=== PATIENT | female | born 1965 | race American Indian/Alaskan Native ===

== ENCOUNTER 2017-05-30 07:23 | Inpatient (IN) | payer MEDICAID ==
--- NOTE | 2017-05-30 08:14 | XRay Report ---
ROUTINE CHEST, TWO VIEWS: HISTORY: Shortness of breath. The trachea, heart, mediastinal contour, lung bran and bony thorax are unremarkable. IMPRESSION: Unremarkable chest x-ray.
[2017-05-30 08:25] LABS: Hematocrit 42.8 % (30.3-42.9); Mean Corpuscular HGB Conc 33 % (30-34); Mean Corpuscular Hemoglobin 30 pg (28-32); Mean Corpuscular Volume 92 fl (79-97); Platelet Count 160 K/mm3 (140-440); Red Blood Count 4.68 M/mm3 (3.65-5.03); Red Cell Distribution Width 13.7 % (13.2-15.2)
[2017-05-30 08:39] LABS: BUN/Creatinine Ratio 19; Blood Urea Nitrogen 13 mg/dL (7-17); Calcium 9.1 mg/dL (8.4-10.2); Hemolysis Index 10
[2017-05-30 10:23] LABS: Anisocytosis 1+; Macrocytosis 1+; Platelet Estimate Consistent w Auto; Total Cells Counted 100
[2017-05-30] MEDS ORDERED: PROVENTIL IH ONE ×2 (10:36→11:39)
[2017-05-30] MEDS ORDERED: VIBRAMYCIN PO ONE (10:36)
[2017-05-30] MEDS ORDERED: DELTASONE PO ONE (10:36)
[2017-05-30] MEDS ORDERED: ATROVENT IH ONE (10:37)
--- NOTE | 2017-05-30 10:41 | Emergency Department Report ---
HPI - General Chief Complaint: Abdominal Pain Time Seen by Provider: 05/30/17 10:35 - HPI HPI: 82-year-old female has a history of COPD and tobacco abuse . She states that she's been coughing and wheezing. Stated that she had vomiting. She's vomited with streaks of blood. She also noticed bright red blood per rectum. She denies abdominal pain at this time. Mostly she is concerned about her breathing with cough. Recently admitted 1 month ago at [facility]. ED Past Medical Hx - Past Medical History Previous Medical History?: Yes Hx CVA: Yes Hx Heart Attack/AMI: Yes Hx Congestive Heart Failure: Yes Hx Diabetes: Yes Hx Seizures: Yes Hx Asthma: Yes Hx COPD: Yes Additional medical history: BRONCHITIS - Surgical History Past Surgical History?: No - Social History Smoking Status: Former Smoker Substance Use Type: None ED Review of Systems ROS: Stated complaint: SOB Other details as noted in HPI Comment: All other systems reviewed and negative Constitutional: chills, malaise ENT: denies: throat pain Respiratory: cough Physical Exam - Physical Exam Vital Signs: Vital Signs 05/30/17 07:37 Temperature 98.3 F Pulse Rate 72 Respiratory 24 Rate Blood Pressure 128/64 O2 Sat by Pulse 97 Oximetry Physical Exam: General: Well-appearing, no acute distress HEENT: Normocephalic atraumatic pupils equal round and reactive to light anicteric sclera Nose: no rhinorrhea Oropharynx: Clear mucous membranes no lesions Neck: supple, no meningismus Chest: Speaking full word sentences mild respiratory distress with inspiratory expiratory wheezes no rales no rhonchi Cardiac: Regular rate and rhythm no murmurs no rubs no gallops Abdomen: Soft nontender nondistended positive bowel sounds no guarding Extremities: No cyanosis no clubbing no edema Neuro: Moves all extremities 4, no gross deficits Psychiatric: Alert and oriented 4 normal aspect normal judgment normal insight ED Course Vital Signs 05/30/17 07:37 Temperature 98.3 F Pulse Rate 72 Respiratory 24 Rate Blood Pressure 128/64 O2 Sat by Pulse 97 Oximetry ED Medical Decision Making - Lab Data Result diagrams: 05/30/17 08:07 05/30/17 08:07 Vital Signs - 24 hr 05/30/17 07:37 Temperature 98.3 F Pulse Rate 72 Respiratory 24 Rate Blood Pressure 128/64 O2 Sat by Pulse 97 Oximetry Laboratory Results - last 24 hr 05/30/17 05/30/17 08:07 08:07 WBC 4.6 RBC 4.68 Hgb 14.0 Hct 42.8 MCV 92 MCH 30 MCHC 33 RDW 13.7 Plt Count 160 [place] % (Auto) Enforcement Safety Officer Add Manual Diff Complete Total Counted 100 Seg Neuts % (Manual) 59.0 Band Neutrophils % 0 Lymphocytes % (Manual) 20.0 Reactive Lymphs % (Man) 0 Monocytes % (Manual) 17.0 H Eosinophils % (Manual) 3.0 Basophils % (Manual) 1.0 Metamyelocytes % 0 Myelocytes % 0 Promyelocytes % 0 Blast Cells % 0 Nucleated RBC % Not Reportable Seg Neutrophils # Man 2.7 Band Neutrophils # 0.0 Lymphocytes # (Manual) 0.9 L Abs React Lymphs (Man) 0.0 Monocytes # (Manual) 0.8 Eosinophils # (Manual) 0.1 Basophils # (Manual) 0.0 Metamyelocytes # 0.0 Myelocytes # 0.0 Promyelocytes # 0.0 Blast Cells # 0.0 WBC Morphology Not Reportable Hypersegmented Neuts Not Reportable Hyposegmented Neuts Not Reportable Hypogranular Neuts Not Reportable Smudge Cells Not Reportable Toxic Granulation Not Reportable Toxic Vacuolation Not Reportable Dohle Bodies Not Reportable Pelger-Huet Anomaly Not Reportable Irish Rods Not Reportable Platelet Estimate Consistent w auto Clumped Platelets Not Reportable Plt Clumps, EDTA Not Reportable Large Platelets Not Reportable Giant Platelets Not Reportable Platelet Satelliting Not Reportable Plt Morphology Comment Not Reportable RBC Morphology Not Reportable Dimorphic RBCs Not Reportable Polychromasia Not Reportable Hypochromasia Not Reportable Poikilocytosis Not Reportable Anisocytosis 1+ Microcytosis Not Reportable Macrocytosis 1+ Spherocytes Not Reportable Pappenheimer Bodies Not Reportable Sickle Cells Not Reportable Target Cells Not Reportable Tear Drop Cells Not Reportable Ovalocytes Not Reportable Helmet Cells Not Reportable [place] Bodies Not Reportable Rufus Rings Not Reportable [place] Cells Not Reportable Bite Cells Not Reportable Crenated Cell Not Reportable Elliptocytes Not Reportable Acanthocytes (Spur) Not Reportable Rouleaux Not Reportable Hemoglobin C Crystals Not Reportable Schistocytes Not Reportable Malaria parasites Not Reportable Anshu Bodies Not Reportable Hem Pathologist Commnt No Sodium 142 Potassium 4.2 Chloride 102.5 Carbon Dioxide 28 Anion Gap 16 BUN 13 Creatinine 0.7 Estimated GFR > 60 BUN/Creatinine Ratio 19 Glucose 103 H Calcium 9.1 Troponin T < 0.010 - EKG Data 05/30/17 10:40 EKG obtained 746 Normal sinus rhythm rate of 80 beats a minute normal axis normal intervals diffuse T-wave inversion. No ST elevation - Radiology Data Radiology results: report reviewed - Medical Decision Making 1. Ms. Elias presents with mild COPD exacerbation and she was given oral antibiotics, nebulizer therapy and prednisone 2. Patient reports vomiting blood and bright red blood per rectum. No indication clinically of active GI bleed. Normal hemoglobin and hematocrit. Normal heart rate With persistent shortness of breath and wheezing after 15 mg of albuterol and Atrovent, patient admitted to hospitalist service. I spoke with Dr. Mckee. Critical care attestation.: If time is entered above; I have spent that time in minutes in the direct care of this critically ill patient, excluding procedure time. ED Disposition Clinical Impression: COPD exacerbation Disposition: OP ADMIT IP TO THIS HOSP Is pt being admited?: Yes Does the pt Need Aspirin: No Condition: Fair Instructions: Abdominal Pain (ED), Chronic Obstructive Pulmonary Disease (ED) Referrals: PRIMARY CARE, [Primary Care Provider] - 3-5 Days
--- NOTE | 2017-05-30 13:06 | History and Physical Report ---
History of Present Illness Chief complaint: I cant breathe, and i keep coughing History of present illness: 52 YO Female with MO, AL, CHF, DM, COPD, Seizure Disorder presents to ED for evaluation. Pt states that she has experienced shortness of breath, productive cough of yellowish blood tinged sputum, and wheezing over the past 3 days with worsening symptoms over the past 1 day. Pt acknowledges subjective fever, but denies NVD, CP, Palpitations, Syncope, Prolonged travel/immobility, individual/ family history of DVT/PE, unilateral leg swelling, calf pain, leg pain, BRBPR, unintentional weight loss, night sweats, bone pain, trauma, or recent ill contacts. Pt seen and evaluated in ED and found to have COPD Exacerbation complicated by respiratory failure, not responsive to nebulizer therapy. Pt admitted to medical floor. Past History Past Medical History: acute AL, COPD, diabetes, heart failure, seizures, other ( Asthma) Past Surgical History: No surgical history, Other (reviewed) Social history: single. denies: smoking, alcohol abuse, prescription drug abuse Family history: diabetes, hypertension Medications and Allergies Allergies Allergy/AdvReac Type Severity Reaction Status Date / Time Penicillins Allergy Hives Verified 05/30/17 07:35 Review of Systems Constitutional: fever, weakness, no weight loss, no weight gain, no chills, no sweats, no night sweats Ears, nose, mouth and throat: no ear pain, no ear discharge, no tinnitis, no decreased hearing, no nose pain, no nasal congestion Breasts: no change in shape, no swelling, no mass Cardiovascular: no chest pain, no palpitations, no lightheadedness Respiratory: cough, cough with sputum, shortness of breath, wheezing Gastrointestinal: no nausea, no vomiting, no diarrhea, no constipation Genitourinary Female: no pelvic pain, no flank pain, no menorrhagia, no dysuria , no urinary frequency, no urgency Rectal: no pain, no incontinence, no bleeding Musculoskeletal: no neck stiffness, no neck pain, no shooting arm pain, no arm numbness/tingling, no low back pain, no shooting leg pain Integumentary: no rash, no pruritis, no redness, no sores, no wounds, no jaundice Neurological: no transient paralysis, no paralysis, no weakness, no parathesias , no numbness Psychiatric: no anxiety, no memory loss, no change in sleep habits, no sleep disturbances, no insomnia Endocrine: no cold intolerance, no heat intolerance, no polyphagia, no excessive thirst, no polydipsia, no polyuria Hematologic/Lymphatic: no easy bruising, no easy bleeding, no lymphadenopathy, no lymphedema Allergic/Immunologic: no urticaria, no allergic rhinitis, no wheezing, no persistent infections, no anaphylaxis, no angioedema Exam - Constitutional Vitals: Temp Pulse Resp BP Pulse Ox 98.3 F 80 22 128/64 97 05/30/17 07:37 05/30/17 12:55 05/30/17 12:55 05/30/17 07:37 05/30/17 07:37 General appearance: Present: mild distress - EENT Eyes: Present: PERRL ENT: hearing intact, clear oral mucosa - Neck Neck: Present: supple, normal ROM - Respiratory Respiratory effort: normal Respiratory: bilateral: diminished, wheezing - Cardiovascular Heart Sounds: Present: S1 & S2. Absent: rub, click - Extremities Extremities: pulses symmetrical, No edema Peripheral Pulses: within normal limits - Abdominal General gastrointestinal: Present: soft, non-tender, non-distended, normal bowel sounds Female genitourinary: Present: normal - Integumentary Integumentary: Present: clear, warm, dry - Musculoskeletal Musculoskeletal: gait normal, strength equal bilaterally - Psychiatric Psychiatric: appropriate mood/affect, intact judgment & insight - Neurologic Neurologic: CNII-XII intact, moves all extremities Results - Labs CBC & Chem 7: 05/30/17 08:07 05/30/17 08:07 Labs: Abnormal lab results 05/30/17 05/30/17 Range/Units 08:07 08:07 Monocytes % (Manual) 17.0 H (0.0-7.3) % Lymphocytes # (Manual) 0.9 L (1.2-5.4) K/mm3 Glucose 103 H (65-100) mg/dL Assessment and Plan - Patient Problems (1) Acute respiratory failure Current Visit: Yes Status: Acute Qualifiers: Respiratory failure complication: hypoxia Qualified Code(s): J96.01 - Acute respiratory failure with hypoxia Plan to address problem: Supplemental oxygen, nebulizer therapy, NIPPV as clinically indicated, incentive spirometry, pulmonary toilet. (2) CHF (congestive heart failure) Current Visit: Yes Status: Suspected Qualifiers: Congestive heart failure type: systolic Congestive heart failure chronicity : acute Qualified Code(s): I50.21 - Acute systolic (congestive) heart failure Plan to address problem: CXR, BNP, Echo, Fluid restriction, monitor uop q shift, daily weight, diuresis, troponin, afterload reduction, (3) Diabetes Current Visit: Yes Status: Acute Plan to address problem: ADA diet, insulin, accu check (4) Seizure Current Visit: Yes Status: Acute Plan to address problem: Resume home medication, supportive care, (5) COPD exacerbation Current Visit: Yes Status: Acute Plan to address problem: Supplemental oxygen, IV steroids, Chest X ray, (6) DVT prophylaxis Current Visit: Yes Status: Acute
[2017-05-30] MEDS ORDERED: DULCOLAX PR PRN (13:08)
[2017-05-30] MEDS ORDERED: MILK OF MAGNESIA PO PRN (13:08)
[2017-05-30] MEDS ORDERED: ZOFRAN IV PRN (13:08)
[2017-05-30] MEDS ORDERED: MAGNESIUM SULFATE 1 GM in NACL 0.9% 50 ML IV ONE (15:00)
[2017-05-30] MEDS: ZITHROMAX 500 MG in NACL 0.9% 250ML 250 ML IV SCH (17:00)
[2017-05-31] MEDS: PROVENTIL IH PRN (08:10)
[2017-05-31] MEDS ORDERED: NON-FORMULARY (Levetiracetam [Keppra Tab] 1,000 MG) PO SCH (12:00)
--- NOTE | 2017-05-31 12:01 | Progress Note ---
Assessment and Plan Assessment and plan: Patient is a 52-year-old woman with history of chronic hypoxic respiratory failure on home O2 due to COPD, seizure disorder, osteoarthritis and type 2 diabetes mellitus with neuropathy who presents with shortness of breath and cough. Patient admits to running out of her oxygen because she has been living in a longterm. pCXR reported as no acute findings -Acute on chronic hypoxic respiratory failure due to COPD exacerbation: Treated with oxygen,, IV steroids -Acute exacerbation of COPD: Add nebulizer treatments [id number], treat with IV antibiotics -Seizure disorder: Restart her home medication -Type 2 diabetes mellitus: Add SSI, ADA diet -Noncompliance: Counseling done -DVT/GI prophylaxis reviewed Full code Disposition: Consult case management for oxygen, she qualifies for oxygen, anticipate discharge in 2-3 days History Interval history: Patient was seen and examined. Follow-up on current diagnosis of shortness of breath and cough which is still present. Overnight uneventful. Patient denies any chest pain, nausea/vomiting or severe headaches. Imaging, nursing note, chart, labs and old chart reviewed. Discussed with patient. Hospitalist Physical - Physical exam Narrative exam: GEN: WDWN, NAD, AWAKE, ALERT, ORIENTATED 3 HEENT: NCAT, EOMI, PERRL, OP Clear NECK: supple, no adenopathy, no thyromegaly, no JVD CVS/HEART: RRR, NORMAL S1S2, NO JVD, pulses present bilaterally CHEST/LUNGS: Bilateral rhonchi, diminished breath sounds, Symmetrical chest expansion, reduced air entry bilaterally GI/Abdomen: soft, NTND, good bowel sounds, no guarding or rebound /Bladder: no suprapubic tenderness, no CVA or paraspinal tenderness EXT/Skin: no c/c/e, no obvious rash MSK: FROM x 4 Neuro: CN 2-12 grossly intact, no new focal deficits Psych: Anxious - Constitutional Vitals: Temp Pulse Resp BP Pulse Ox 99.3 F 81 18 145/87 93 05/31/17 07:29 05/31/17 07:29 05/31/17 07:29 05/31/17 07:29 05/31/17 07:29 Results - Labs CBC & Chem 7: 05/30/17 08:07 05/30/17 08:07 Labs: Laboratory Last Values WBC 4.6 K/mm3 (4.5-11.0) 05/30/17 08:07 RBC 4.68 M/mm3 (3.65-5.03) 05/30/17 08:07 Hgb 14.0 gm/dl (10.1-14.3) 05/30/17 08:07 Hct 42.8 % (30.3-42.9) 05/30/17 08:07 MCV 92 fl (79-97) 05/30/17 08:07 MCH 30 pg (28-32) 05/30/17 08:07 MCHC 33 % (30-34) 05/30/17 08:07 RDW 13.7 % (13.2-15.2) 05/30/17 08:07 Plt Count 160 K/mm3 (140-440) 05/30/17 08:07 [place] % (Auto) Furnace Caretaker 05/30/17 08:07 Add Manual Diff Complete 05/30/17 08:07 Total Counted 100 05/30/17 08:07 Seg Neuts % (Manual) 59.0 % (40.0-70.0) 05/30/17 08:07 Band Neutrophils % 0 % 05/30/17 08:07 Lymphocytes % (Manual) 20.0 % (13.4-35.0) 05/30/17 08:07 Reactive Lymphs % (Man) 0 % 05/30/17 08:07 Monocytes % (Manual) 17.0 % (0.0-7.3) H 05/30/17 08:07 Eosinophils % (Manual) 3.0 % (0.0-4.3) 05/30/17 08:07 Basophils % (Manual) 1.0 % (0.0-1.8) 05/30/17 08:07 Metamyelocytes % 0 % 05/30/17 08:07 Myelocytes % 0 % 05/30/17 08:07 Promyelocytes % 0 % 05/30/17 08:07 Blast Cells % 0 % 05/30/17 08:07 Nucleated RBC % Not Reportable 05/30/17 08:07 Seg Neutrophils # Man 2.7 K/mm3 (1.8-7.7) 05/30/17 08:07 Band Neutrophils # 0.0 K/mm3 05/30/17 08:07 Lymphocytes # (Manual) 0.9 K/mm3 (1.2-5.4) L 05/30/17 08:07 Abs React Lymphs (Man) 0.0 K/mm3 05/30/17 08:07 Monocytes # (Manual) 0.8 K/mm3 (0.0-0.8) 05/30/17 08:07 Eosinophils # (Manual) 0.1 K/mm3 (0.0-0.4) 05/30/17 08:07 Basophils # (Manual) 0.0 K/mm3 (0.0-0.1) 05/30/17 08:07 Metamyelocytes # 0.0 K/mm3 05/30/17 08:07 Myelocytes # 0.0 K/mm3 05/30/17 08:07 Promyelocytes # 0.0 K/mm3 05/30/17 08:07 Blast Cells # 0.0 K/mm3 05/30/17 08:07 WBC Morphology Not Reportable 05/30/17 08:07 Hypersegmented Neuts Not Reportable 05/30/17 08:07 Hyposegmented Neuts Not Reportable 05/30/17 08:07 Hypogranular Neuts Not Reportable 05/30/17 08:07 Smudge Cells Not Reportable 05/30/17 08:07 Toxic Granulation Not Reportable 05/30/17 08:07 Toxic Vacuolation Not Reportable 05/30/17 08:07 Dohle Bodies Not Reportable 05/30/17 08:07 Pelger-Huet Anomaly Not Reportable 05/30/17 08:07 Riish Rods Not Reportable 05/30/17 08:07 Platelet Estimate Consistent w auto 05/30/17 08:07 Clumped Platelets Not Reportable 05/30/17 08:07 Plt Clumps, EDTA Not Reportable 05/30/17 08:07 Large Platelets Not Reportable 05/30/17 08:07 Giant Platelets Not Reportable 05/30/17 08:07 Platelet Satelliting Not Reportable 05/30/17 08:07 Plt Morphology Comment Not Reportable 05/30/17 08:07 RBC Morphology Not Reportable 05/30/17 08:07 Dimorphic RBCs Not Reportable 05/30/17 08:07 Polychromasia Not Reportable 05/30/17 08:07 Hypochromasia Not Reportable 05/30/17 08:07 Poikilocytosis Not Reportable 05/30/17 08:07 Anisocytosis 1+ 05/30/17 08:07 Microcytosis Not Reportable 05/30/17 08:07 Macrocytosis 1+ 05/30/17 08:07 Spherocytes Not Reportable 05/30/17 08:07 Pappenheimer Bodies Not Reportable 05/30/17 08:07 Sickle Cells Not Reportable 05/30/17 08:07 Target Cells Not Reportable 05/30/17 08:07 Tear Drop Cells Not Reportable 05/30/17 08:07 Ovalocytes Not Reportable 05/30/17 08:07 Helmet Cells Not Reportable 05/30/17 08:07 Soto-[place] Bodies Not Reportable 05/30/17 08:07 [place] Rings Not Reportable 05/30/17 08:07 Tulio Cells Not Reportable 05/30/17 08:07 Bite Cells Not Reportable 05/30/17 08:07 Crenated Cell Not Reportable 05/30/17 08:07 Elliptocytes Not Reportable 05/30/17 08:07 Acanthocytes (Spur) Not Reportable 05/30/17 08:07 Rouleaux Not Reportable 05/30/17 08:07 Hemoglobin C Crystals Not Reportable 05/30/17 08:07 Schistocytes Not Reportable 05/30/17 08:07 Malaria parasites Not Reportable 05/30/17 08:07 Anshu Bodies Not Reportable 05/30/17 08:07 Hem Pathologist Commnt No 05/30/17 08:07 D-Dimer 193.66 ng/mlDDU (0-234) 05/30/17 13:19 Sodium 142 mmol/L (137-145) 05/30/17 08:07 Potassium 4.2 mmol/L (3.6-5.0) 05/30/17 08:07 Chloride 102.5 mmol/L (98-107) 05/30/17 08:07 Carbon Dioxide 28 mmol/L (22-30) 05/30/17 08:07 Anion Gap 16 mmol/L 05/30/17 08:07 BUN 13 mg/dL (7-17) 05/30/17 08:07 Creatinine 0.7 mg/dL (0.7-1.2) 05/30/17 08:07 Estimated GFR > 60 ml/min 05/30/17 08:07 BUN/Creatinine Ratio 19 % 05/30/17 08:07 Glucose 103 mg/dL (65-100) H 05/30/17 08:07 POC Glucose 186 (70-105) H 05/30/17 16:00 Calcium 9.1 mg/dL (8.4-10.2) 05/30/17 08:07 Troponin T < 0.010 ng/mL (0.00-0.029) 05/30/17 08:07 NT-Pro-B Natriuret Pep 44.91 pg/mL (0-900) 05/30/17 08:07
[2017-05-31] MEDS ORDERED: D50W (25GM) Syringe IV PRN (12:03)
[2017-05-31] MEDS: ZESTRIL PO SCH (13:01)
[2017-05-31] MEDS: KEPPRA PO SCH ×2 (13:12→21:21)
[2017-05-31] MEDS: DUONEB *Not for PRN Use IH SCH ×2 (15:08→19:49)
[2017-05-31] MEDS: MUCINEX ER PO SCH ×2 (16:20→21:21)
[2017-05-31] MEDS: ZITHROMAX 500 MG in NACL 0.9% 250ML 250 ML IV SCH (16:20)
[2017-05-31] MEDS: NOVOLOG SUB-Q SCH ×2 (16:31→23:01)
[2017-05-31] MEDS: GLUCOPHAGE PO SCH (21:21)
[2017-05-31] MEDS: PAMELOR PO SCH (21:21)
[2017-05-31] MEDS: TYLENOL PO PRN (21:25)
[2017-06-01] MEDS: PROVENTIL IH PRN (04:28)
[2017-06-01 06:24] LABS: Hematocrit 42.3 % (30.3-42.9); Mean Corpuscular HGB Conc 33 % (30-34); Mean Corpuscular Hemoglobin 30 pg (28-32); Mean Corpuscular Volume 91 fl (79-97); Platelet Count 156 K/mm3 (140-440); Red Blood Count 4.65 M/mm3 (3.65-5.03); Red Cell Distribution Width 14.2 % (13.2-15.2)
[2017-06-01 06:44] LABS: BUN/Creatinine Ratio 15; Blood Urea Nitrogen 9 mg/dL (7-17); Calcium 9.1 mg/dL (8.4-10.2); Hemolysis Index 31
[2017-06-01] MEDS: DUONEB *Not for PRN Use IH SCH ×3 (07:59→19:36)
[2017-06-01] MEDS: NOVOLOG SUB-Q SCH ×4 (08:12→22:16)
[2017-06-01] MEDS: KEPPRA PO SCH ×2 (09:33→22:13)
[2017-06-01] MEDS: MUCINEX ER PO SCH ×2 (09:33→22:12)
[2017-06-01] MEDS: GLUCOPHAGE PO SCH ×2 (09:33→22:13)
[2017-06-01] MEDS: ZITHROMAX PO SCH (09:33)
[2017-06-01] MEDS: ZESTRIL PO SCH (09:34)
[2017-06-01] MEDS: TYLENOL PO PRN (09:42)
--- NOTE | 2017-06-01 12:58 | Progress Note ---
Assessment and Plan Assessment and plan: Patient is a 52-year-old woman with history of chronic hypoxic respiratory failure on home O2 due to COPD, seizure disorder, osteoarthritis and type 2 diabetes mellitus with neuropathy who presents with shortness of breath and cough. Patient admits to running out of her oxygen because she has been living in a halfway. pCXR reported as no acute findings -Acute on chronic hypoxic respiratory failure due to COPD exacerbation: Treated with oxygen,, IV steroids -Acute exacerbation of COPD: Add nebulizer treatments [id number], treat with IV antibiotics -Seizure disorder: Restart her home medication -Type 2 diabetes mellitus: Add SSI, ADA diet -Noncompliance: Counseling done -DVT/GI prophylaxis reviewed Full code Disposition: Consult case management for oxygen, if she qualifies for oxygen, anticipate discharge in 2-3 days History Interval history: Patient was seen and examined. Follow-up on current diagnosis of shortness of breath and cough which is still present. Overnight uneventful. Patient denies any chest pain, nausea/vomiting or severe headaches. Imaging, nursing note, chart, labs and old chart reviewed. Discussed with patient. Hospitalist Physical - Physical exam Narrative exam: GEN: WDWN, NAD, AWAKE, ALERT, ORIENTATED 3 HEENT: NCAT, EOMI, PERRL, OP Clear NECK: supple, no adenopathy, no thyromegaly, no JVD CVS/HEART: RRR, NORMAL S1S2, NO JVD, pulses present bilaterally CHEST/LUNGS: Bilateral rhonchi, diminished breath sounds, Symmetrical chest expansion, reduced air entry bilaterally GI/Abdomen: soft, NTND, good bowel sounds, no guarding or rebound /Bladder: no suprapubic tenderness, no CVA or paraspinal tenderness EXT/Skin: no c/c/e, no obvious rash MSK: FROM x 4 Neuro: CN 2-12 grossly intact, no new focal deficits Psych: Anxious - Constitutional Vitals: Temp Pulse Resp BP Pulse Ox 98.8 F 102 H 18 120/87 95 06/01/17 07:18 06/01/17 08:10 06/01/17 08:10 06/01/17 09:34 06/01/17 10:00 General appearance: Absent: mild distress Results - Labs CBC & Chem 7: 06/01/17 05:20 06/01/17 05:20 Labs: Laboratory Last Values WBC 5.1 K/mm3 (4.5-11.0) 06/01/17 05:20 RBC 4.65 M/mm3 (3.65-5.03) 06/01/17 05:20 Hgb 14.0 gm/dl (10.1-14.3) 06/01/17 05:20 Hct 42.3 % (30.3-42.9) 06/01/17 05:20 MCV 91 fl (79-97) 06/01/17 05:20 MCH 30 pg (28-32) 06/01/17 05:20 MCHC 33 % (30-34) 06/01/17 05:20 RDW 14.2 % (13.2-15.2) 06/01/17 05:20 Plt Count 156 K/mm3 (140-440) 06/01/17 05:20 [place] % (Auto) Silk Printer 05/30/17 08:07 Add Manual Diff Complete 05/30/17 08:07 Total Counted 100 05/30/17 08:07 Seg Neuts % (Manual) 59.0 % (40.0-70.0) 05/30/17 08:07 Band Neutrophils % 0 % 05/30/17 08:07 Lymphocytes % (Manual) 20.0 % (13.4-35.0) 05/30/17 08:07 Reactive Lymphs % (Man) 0 % 05/30/17 08:07 Monocytes % (Manual) 17.0 % (0.0-7.3) H 05/30/17 08:07 Eosinophils % (Manual) 3.0 % (0.0-4.3) 05/30/17 08:07 Basophils % (Manual) 1.0 % (0.0-1.8) 05/30/17 08:07 Metamyelocytes % 0 % 05/30/17 08:07 Myelocytes % 0 % 05/30/17 08:07 Promyelocytes % 0 % 05/30/17 08:07 Blast Cells % 0 % 05/30/17 08:07 Nucleated RBC % Not Reportable 05/30/17 08:07 Seg Neutrophils # Man 2.7 K/mm3 (1.8-7.7) 05/30/17 08:07 Band Neutrophils # 0.0 K/mm3 05/30/17 08:07 Lymphocytes # (Manual) 0.9 K/mm3 (1.2-5.4) L 05/30/17 08:07 Abs React Lymphs (Man) 0.0 K/mm3 05/30/17 08:07 Monocytes # (Manual) 0.8 K/mm3 (0.0-0.8) 05/30/17 08:07 Eosinophils # (Manual) 0.1 K/mm3 (0.0-0.4) 05/30/17 08:07 Basophils # (Manual) 0.0 K/mm3 (0.0-0.1) 05/30/17 08:07 Metamyelocytes # 0.0 K/mm3 05/30/17 08:07 Myelocytes # 0.0 K/mm3 05/30/17 08:07 Promyelocytes # 0.0 K/mm3 05/30/17 08:07 Blast Cells # 0.0 K/mm3 05/30/17 08:07 WBC Morphology Not Reportable 05/30/17 08:07 Hypersegmented Neuts Not Reportable 05/30/17 08:07 Hyposegmented Neuts Not Reportable 05/30/17 08:07 Hypogranular Neuts Not Reportable 05/30/17 08:07 Smudge Cells Not Reportable 05/30/17 08:07 Toxic Granulation Not Reportable 05/30/17 08:07 Toxic Vacuolation Not Reportable 05/30/17 08:07 Dohle Bodies Not Reportable 05/30/17 08:07 Pelger-Huet Anomaly Not Reportable 05/30/17 08:07 Irish Rods Not Reportable 05/30/17 08:07 Platelet Estimate Consistent w auto 05/30/17 08:07 Clumped Platelets Not Reportable 05/30/17 08:07 Plt Clumps, EDTA Not Reportable 05/30/17 08:07 Large Platelets Not Reportable 05/30/17 08:07 Giant Platelets Not Reportable 05/30/17 08:07 Platelet Satelliting Not Reportable 05/30/17 08:07 Plt Morphology Comment Not Reportable 05/30/17 08:07 RBC Morphology Not Reportable 05/30/17 08:07 Dimorphic RBCs Not Reportable 05/30/17 08:07 Polychromasia Not Reportable 05/30/17 08:07 Hypochromasia Not Reportable 05/30/17 08:07 Poikilocytosis Not Reportable 05/30/17 08:07 Anisocytosis 1+ 05/30/17 08:07 Microcytosis Not Reportable 05/30/17 08:07 Macrocytosis 1+ 05/30/17 08:07 Spherocytes Not Reportable 05/30/17 08:07 Pappenheimer Bodies Not Reportable 05/30/17 08:07 Sickle Cells Not Reportable 05/30/17 08:07 Target Cells Not Reportable 05/30/17 08:07 Tear Drop Cells Not Reportable 05/30/17 08:07 Ovalocytes Not Reportable 05/30/17 08:07 Helmet Cells Not Reportable 05/30/17 08:07 Soto-[place] Bodies Not Reportable 05/30/17 08:07 [place] Rings Not Reportable 05/30/17 08:07 Tulio Cells Not Reportable 05/30/17 08:07 Bite Cells Not Reportable 05/30/17 08:07 Crenated Cell Not Reportable 05/30/17 08:07 Elliptocytes Not Reportable 05/30/17 08:07 Acanthocytes (Spur) Not Reportable 05/30/17 08:07 Rouleaux Not Reportable 05/30/17 08:07 Hemoglobin C Crystals Not Reportable 05/30/17 08:07 Schistocytes Not Reportable 05/30/17 08:07 Malaria parasites Not Reportable 05/30/17 08:07 Anshu Bodies Not Reportable 05/30/17 08:07 Hem Pathologist Commnt No 05/30/17 08:07 D-Dimer 193.66 ng/mlDDU (0-234) 05/30/17 13:19 Sodium 138 mmol/L (137-145) 06/01/17 05:20 Potassium 4.0 mmol/L (3.6-5.0) 06/01/17 05:20 Chloride 97.9 mmol/L (98-107) L 06/01/17 05:20 Carbon Dioxide 28 mmol/L (22-30) 06/01/17 05:20 Anion Gap 16 mmol/L 06/01/17 05:20 BUN 9 mg/dL (7-17) 06/01/17 05:20 Creatinine 0.6 mg/dL (0.7-1.2) L 06/01/17 05:20 Estimated GFR > 60 ml/min 06/01/17 05:20 BUN/Creatinine Ratio 15 % 06/01/17 05:20 Glucose 97 mg/dL (65-100) 06/01/17 05:20 POC Glucose 93 (70-105) 06/01/17 11:20 Calcium 9.1 mg/dL (8.4-10.2) 06/01/17 05:20 Magnesium 1.90 mg/dL (1.7-2.3) 06/01/17 05:20 Troponin T < 0.010 ng/mL (0.00-0.029) 05/30/17 08:07 NT-Pro-B Natriuret Pep 44.91 pg/mL (0-900) 05/30/17 08:07
[2017-06-01] MEDS ORDERED: GUAIFENESIN DM SYRUP PO PRN (14:14)
[2017-06-01] MEDS: TESSALON PERLES PO SCH ×2 (16:09→22:13)
[2017-06-01] MEDS: PERCOCET 5/325 PO PRN (17:00)
[2017-06-01] MEDS: PAMELOR PO SCH (22:13)
[2017-06-02] MEDS: TESSALON PERLES PO SCH ×3 (05:31→21:55)
[2017-06-02] MEDS: TYLENOL PO PRN (05:33)
[2017-06-02 06:10] LABS: Hematocrit 44.3 % (30.3-42.9); Hemoglobin 14.4 gm/dl (10.1-14.3); Mean Corpuscular HGB Conc 33 % (30-34); Mean Corpuscular Hemoglobin 30 pg (28-32); Mean Corpuscular Volume 91 fl (79-97); Platelet Count 174 K/mm3 (140-440); Red Blood Count 4.86 M/mm3 (3.65-5.03); Red Cell Distribution Width 14.1 % (13.2-15.2)
[2017-06-02 06:16] LABS: BUN/Creatinine Ratio 17; Blood Urea Nitrogen 10 mg/dL (7-17); Calcium 9.4 mg/dL (8.4-10.2); Hemolysis Index 12
[2017-06-02] MEDS: DUONEB *Not for PRN Use IH SCH ×3 (07:12→19:44)
[2017-06-02] MEDS: NOVOLOG SUB-Q SCH ×4 (07:20→23:51)
[2017-06-02] MEDS: KEPPRA PO SCH ×2 (09:18→21:56)
[2017-06-02] MEDS: GLUCOPHAGE PO SCH ×2 (09:19→21:56)
[2017-06-02] MEDS: ZITHROMAX PO SCH (09:20)
[2017-06-02] MEDS: MUCINEX ER PO SCH ×2 (09:20→21:55)
[2017-06-02] MEDS: ZESTRIL PO SCH (09:29)
--- NOTE | 2017-06-02 11:18 | Progress Note ---
Assessment and Plan Assessment and plan: Patient is a 52-year-old woman with history of chronic hypoxic respiratory failure on home O2 due to COPD, seizure disorder, osteoarthritis and type 2 diabetes mellitus with neuropathy who presents with shortness of breath and cough. Patient admits to running out of her oxygen because she has been living in a snf. pCXR reported as no acute findings -Acute on chronic hypoxic respiratory failure due to COPD exacerbation: Treated with oxygen,, IV steroids -Acute exacerbation of COPD: Add nebulizer treatments [id number], treat with IV antibiotics -Seizure disorder: Restart her home medication -Type 2 diabetes mellitus: Add SSI, ADA diet -Noncompliance: Counseling done -DVT/GI prophylaxis reviewed Full code Disposition: Consult case management for oxygen, if she qualifies for oxygen, anticipate discharge in 1-2 days Patient is on 4liters of O2, once O2 setup then discharge. History Interval history: Patient was seen and examined. Follow-up on current diagnosis of shortness of breath and cough which is still present. Overnight uneventful. Patient denies any chest pain, nausea/vomiting or severe headaches. Imaging, nursing note, chart, labs and old chart reviewed. Discussed with patient. Hospitalist Physical - Physical exam Narrative exam: GEN: WDWN, NAD, AWAKE, ALERT, ORIENTATED 3 HEENT: NCAT, EOMI, PERRL, OP Clear NECK: supple, no adenopathy, no thyromegaly, no JVD CVS/HEART: RRR, NORMAL S1S2, NO JVD, pulses present bilaterally CHEST/LUNGS: Bilateral rhonchi, diminished breath sounds, Symmetrical chest expansion, reduced air entry bilaterally GI/Abdomen: soft, NTND, good bowel sounds, no guarding or rebound /Bladder: no suprapubic tenderness, no CVA or paraspinal tenderness EXT/Skin: no c/c/e, no obvious rash MSK: FROM x 4 Neuro: CN 2-12 grossly intact, no new focal deficits Psych: Anxious - Constitutional Vitals: Temp Pulse Resp BP Pulse Ox 97.8 F 82 20 141/87 94 06/02/17 07:24 06/02/17 07:24 06/02/17 07:24 06/02/17 07:24 06/02/17 07:24 General appearance: Absent: mild distress Results - Labs CBC & Chem 7: 06/02/17 05:10 06/02/17 05:10 Labs: Laboratory Last Values WBC 4.8 K/mm3 (4.5-11.0) 06/02/17 05:10 RBC 4.86 M/mm3 (3.65-5.03) 06/02/17 05:10 Hgb 14.4 gm/dl (10.1-14.3) H 06/02/17 05:10 Hct 44.3 % (30.3-42.9) H 06/02/17 05:10 MCV 91 fl (79-97) 06/02/17 05:10 MCH 30 pg (28-32) 06/02/17 05:10 MCHC 33 % (30-34) 06/02/17 05:10 RDW 14.1 % (13.2-15.2) 06/02/17 05:10 Plt Count 174 K/mm3 (140-440) 06/02/17 05:10 [place] % (Auto) Can Tender 05/30/17 08:07 Add Manual Diff Complete 05/30/17 08:07 Total Counted 100 05/30/17 08:07 Seg Neuts % (Manual) 59.0 % (40.0-70.0) 05/30/17 08:07 Band Neutrophils % 0 % 05/30/17 08:07 Lymphocytes % (Manual) 20.0 % (13.4-35.0) 05/30/17 08:07 Reactive Lymphs % (Man) 0 % 05/30/17 08:07 Monocytes % (Manual) 17.0 % (0.0-7.3) H 05/30/17 08:07 Eosinophils % (Manual) 3.0 % (0.0-4.3) 05/30/17 08:07 Basophils % (Manual) 1.0 % (0.0-1.8) 05/30/17 08:07 Metamyelocytes % 0 % 05/30/17 08:07 Myelocytes % 0 % 05/30/17 08:07 Promyelocytes % 0 % 05/30/17 08:07 Blast Cells % 0 % 05/30/17 08:07 Nucleated RBC % Not Reportable 05/30/17 08:07 Seg Neutrophils # Man 2.7 K/mm3 (1.8-7.7) 05/30/17 08:07 Band Neutrophils # 0.0 K/mm3 05/30/17 08:07 Lymphocytes # (Manual) 0.9 K/mm3 (1.2-5.4) L 05/30/17 08:07 Abs React Lymphs (Man) 0.0 K/mm3 05/30/17 08:07 Monocytes # (Manual) 0.8 K/mm3 (0.0-0.8) 05/30/17 08:07 Eosinophils # (Manual) 0.1 K/mm3 (0.0-0.4) 05/30/17 08:07 Basophils # (Manual) 0.0 K/mm3 (0.0-0.1) 05/30/17 08:07 Metamyelocytes # 0.0 K/mm3 05/30/17 08:07 Myelocytes # 0.0 K/mm3 05/30/17 08:07 Promyelocytes # 0.0 K/mm3 05/30/17 08:07 Blast Cells # 0.0 K/mm3 05/30/17 08:07 WBC Morphology Not Reportable 05/30/17 08:07 Hypersegmented Neuts Not Reportable 05/30/17 08:07 Hyposegmented Neuts Not Reportable 05/30/17 08:07 Hypogranular Neuts Not Reportable 05/30/17 08:07 Smudge Cells Not Reportable 05/30/17 08:07 Toxic Granulation Not Reportable 05/30/17 08:07 Toxic Vacuolation Not Reportable 05/30/17 08:07 Dohle Bodies Not Reportable 05/30/17 08:07 Pelger-Huet Anomaly Not Reportable 05/30/17 08:07 Irish Rods Not Reportable 05/30/17 08:07 Platelet Estimate Consistent w auto 05/30/17 08:07 Clumped Platelets Not Reportable 05/30/17 08:07 Plt Clumps, EDTA Not Reportable 05/30/17 08:07 Large Platelets Not Reportable 05/30/17 08:07 Giant Platelets Not Reportable 05/30/17 08:07 Platelet Satelliting Not Reportable 05/30/17 08:07 Plt Morphology Comment Not Reportable 05/30/17 08:07 RBC Morphology Not Reportable 05/30/17 08:07 Dimorphic RBCs Not Reportable 05/30/17 08:07 Polychromasia Not Reportable 05/30/17 08:07 Hypochromasia Not Reportable 05/30/17 08:07 Poikilocytosis Not Reportable 05/30/17 08:07 Anisocytosis 1+ 05/30/17 08:07 Microcytosis Not Reportable 05/30/17 08:07 Macrocytosis 1+ 05/30/17 08:07 Spherocytes Not Reportable 05/30/17 08:07 Pappenheimer Bodies Not Reportable 05/30/17 08:07 Sickle Cells Not Reportable 05/30/17 08:07 Target Cells Not Reportable 05/30/17 08:07 Tear Drop Cells Not Reportable 05/30/17 08:07 Ovalocytes Not Reportable 05/30/17 08:07 Helmet Cells Not Reportable 05/30/17 08:07 [place] Bodies Not Reportable 05/30/17 08:07 [place] Rings Not Reportable 05/30/17 08:07 [place] Cells Not Reportable 05/30/17 08:07 Bite Cells Not Reportable 05/30/17 08:07 Crenated Cell Not Reportable 05/30/17 08:07 Elliptocytes Not Reportable 05/30/17 08:07 Acanthocytes (Spur) Not Reportable 05/30/17 08:07 Rouleaux Not Reportable 05/30/17 08:07 Hemoglobin C Crystals Not Reportable 05/30/17 08:07 Schistocytes Not Reportable 05/30/17 08:07 Malaria parasites Not Reportable 05/30/17 08:07 Anshu Bodies Not Reportable 05/30/17 08:07 Hem Pathologist Commnt No 05/30/17 08:07 D-Dimer 193.66 ng/mlDDU (0-234) 05/30/17 13:19 Sodium 142 mmol/L (137-145) 06/02/17 05:10 Potassium 4.4 mmol/L (3.6-5.0) 06/02/17 05:10 Chloride 98.2 mmol/L (98-107) 06/02/17 05:10 Carbon Dioxide 30 mmol/L (22-30) 06/02/17 05:10 Anion Gap 18 mmol/L 06/02/17 05:10 BUN 10 mg/dL (7-17) 06/02/17 05:10 Creatinine 0.6 mg/dL (0.7-1.2) L 06/02/17 05:10 Estimated GFR > 60 ml/min 06/02/17 05:10 BUN/Creatinine Ratio 17 % 06/02/17 05:10 Glucose 87 mg/dL (65-100) 06/02/17 05:10 POC Glucose 78 (70-105) 06/02/17 05:37 Calcium 9.4 mg/dL (8.4-10.2) 06/02/17 05:10 Magnesium 1.90 mg/dL (1.7-2.3) 06/01/17 05:20 Troponin T < 0.010 ng/mL (0.00-0.029) 05/30/17 08:07 NT-Pro-B Natriuret Pep 44.91 pg/mL (0-900) 05/30/17 08:07
[2017-06-02] MEDS: PAMELOR PO SCH (21:55)
[2017-06-02] MEDS: PERCOCET 5/325 PO PRN (21:59)
[2017-06-03] MEDS: TESSALON PERLES PO SCH ×3 (05:26→22:28)
[2017-06-03 05:51] LABS: Hematocrit 42.6 % (30.3-42.9); Hemoglobin 14.1 gm/dl (10.1-14.3); Mean Corpuscular HGB Conc 33 % (30-34); Mean Corpuscular Hemoglobin 31 pg (28-32); Mean Corpuscular Volume 92 fl (79-97); Platelet Count 148 K/mm3 (140-440); Red Blood Count 4.63 M/mm3 (3.65-5.03); Red Cell Distribution Width 13.7 % (13.2-15.2)
[2017-06-03 06:04] LABS: BUN/Creatinine Ratio 22; Blood Urea Nitrogen 11 mg/dL (7-17); Calcium 9.1 mg/dL (8.4-10.2); Hemolysis Index 15
[2017-06-03] MEDS: NOVOLOG SUB-Q SCH ×4 (08:09→22:27)
[2017-06-03] MEDS: ROBITUSSIN AC PO PRN (09:35)
[2017-06-03] MEDS: MUCINEX ER PO SCH ×2 (09:36→22:28)
[2017-06-03] MEDS: ZESTRIL PO SCH (09:36)
[2017-06-03] MEDS: ZITHROMAX PO SCH (09:36)
[2017-06-03] MEDS: KEPPRA PO SCH ×2 (09:36→22:28)
[2017-06-03] MEDS: GLUCOPHAGE PO SCH ×2 (09:36→22:27)
[2017-06-03] MEDS: DUONEB *Not for PRN Use IH SCH ×3 (09:45→19:35)
--- NOTE | 2017-06-03 11:21 | Progress Note ---
Assessment and Plan Assessment and plan: Patient is a 52-year-old woman with history of chronic hypoxic respiratory failure on home O2 due to COPD, seizure disorder, osteoarthritis and type 2 diabetes mellitus with neuropathy who presents with shortness of breath and cough. Patient admits to running out of her oxygen because she has been living in a correction. pCXR reported as no acute findings -Acute on chronic hypoxic respiratory failure due to COPD exacerbation: Treated with oxygen,, IV steroids -Acute exacerbation of COPD: Add nebulizer treatments [id number], treat with IV antibiotics -Seizure disorder: Restart her home medication -Type 2 diabetes mellitus: Add SSI, ADA diet -Noncompliance: Counseling done -DVT/GI prophylaxis reviewed Full code Disposition: Consult case management for oxygen, if she qualifies for oxygen, anticipate discharge in 1-2 days on 2 liters of O2, once O2 setup then discharge. History Interval history: Patient was seen and examined. Follow-up on current diagnosis of shortness of breath and cough which is still present. Overnight uneventful. Patient denies any chest pain, nausea/vomiting or severe headaches. Imaging, nursing note, chart, labs and old chart reviewed. Discussed with patient. Hospitalist Physical - Physical exam Narrative exam: GEN: WDWN, NAD, AWAKE, ALERT, ORIENTATED 3 HEENT: NCAT, EOMI, PERRL, OP Clear NECK: supple, no adenopathy, no thyromegaly, no JVD CVS/HEART: RRR, NORMAL S1S2, NO JVD, pulses present bilaterally CHEST/LUNGS: Bilateral rhonchi, diminished breath sounds, Symmetrical chest expansion, reduced air entry bilaterally GI/Abdomen: soft, NTND, good bowel sounds, no guarding or rebound /Bladder: no suprapubic tenderness, no CVA or paraspinal tenderness EXT/Skin: no c/c/e, no obvious rash MSK: FROM x 4 Neuro: CN 2-12 grossly intact, no new focal deficits Psych: Anxious - Constitutional Vitals: Temp Pulse Resp BP Pulse Ox 99.3 F 84 18 132/78 97 06/03/17 07:32 06/03/17 09:48 06/03/17 09:48 06/03/17 07:32 06/03/17 09:48 General appearance: Absent: mild distress Results - Labs CBC & Chem 7: 06/03/17 04:37 06/03/17 04:37 Labs: Laboratory Last Values WBC 4.9 K/mm3 (4.5-11.0) 06/03/17 04:37 RBC 4.63 M/mm3 (3.65-5.03) 06/03/17 04:37 Hgb 14.1 gm/dl (10.1-14.3) 06/03/17 04:37 Hct 42.6 % (30.3-42.9) 06/03/17 04:37 MCV 92 fl (79-97) 06/03/17 04:37 MCH 31 pg (28-32) 06/03/17 04:37 MCHC 33 % (30-34) 06/03/17 04:37 RDW 13.7 % (13.2-15.2) 06/03/17 04:37 Plt Count 148 K/mm3 (140-440) 06/03/17 04:37 [place] % (Auto) Model Technician 05/30/17 08:07 Add Manual Diff Complete 05/30/17 08:07 Total Counted 100 05/30/17 08:07 Seg Neuts % (Manual) 59.0 % (40.0-70.0) 05/30/17 08:07 Band Neutrophils % 0 % 05/30/17 08:07 Lymphocytes % (Manual) 20.0 % (13.4-35.0) 05/30/17 08:07 Reactive Lymphs % (Man) 0 % 05/30/17 08:07 Monocytes % (Manual) 17.0 % (0.0-7.3) H 05/30/17 08:07 Eosinophils % (Manual) 3.0 % (0.0-4.3) 05/30/17 08:07 Basophils % (Manual) 1.0 % (0.0-1.8) 05/30/17 08:07 Metamyelocytes % 0 % 05/30/17 08:07 Myelocytes % 0 % 05/30/17 08:07 Promyelocytes % 0 % 05/30/17 08:07 Blast Cells % 0 % 05/30/17 08:07 Nucleated RBC % Not Reportable 05/30/17 08:07 Seg Neutrophils # Man 2.7 K/mm3 (1.8-7.7) 05/30/17 08:07 Band Neutrophils # 0.0 K/mm3 05/30/17 08:07 Lymphocytes # (Manual) 0.9 K/mm3 (1.2-5.4) L 05/30/17 08:07 Abs React Lymphs (Man) 0.0 K/mm3 05/30/17 08:07 Monocytes # (Manual) 0.8 K/mm3 (0.0-0.8) 05/30/17 08:07 Eosinophils # (Manual) 0.1 K/mm3 (0.0-0.4) 05/30/17 08:07 Basophils # (Manual) 0.0 K/mm3 (0.0-0.1) 05/30/17 08:07 Metamyelocytes # 0.0 K/mm3 05/30/17 08:07 Myelocytes # 0.0 K/mm3 05/30/17 08:07 Promyelocytes # 0.0 K/mm3 05/30/17 08:07 Blast Cells # 0.0 K/mm3 05/30/17 08:07 WBC Morphology Not Reportable 05/30/17 08:07 Hypersegmented Neuts Not Reportable 05/30/17 08:07 Hyposegmented Neuts Not Reportable 05/30/17 08:07 Hypogranular Neuts Not Reportable 05/30/17 08:07 Smudge Cells Not Reportable 05/30/17 08:07 Toxic Granulation Not Reportable 05/30/17 08:07 Toxic Vacuolation Not Reportable 05/30/17 08:07 Dohle Bodies Not Reportable 05/30/17 08:07 Pelger-Huet Anomaly Not Reportable 05/30/17 08:07 Irish Rods Not Reportable 05/30/17 08:07 Platelet Estimate Consistent w auto 05/30/17 08:07 Clumped Platelets Not Reportable 05/30/17 08:07 Plt Clumps, EDTA Not Reportable 05/30/17 08:07 Large Platelets Not Reportable 05/30/17 08:07 Giant Platelets Not Reportable 05/30/17 08:07 Platelet Satelliting Not Reportable 05/30/17 08:07 Plt Morphology Comment Not Reportable 05/30/17 08:07 RBC Morphology Not Reportable 05/30/17 08:07 Dimorphic RBCs Not Reportable 05/30/17 08:07 Polychromasia Not Reportable 05/30/17 08:07 Hypochromasia Not Reportable 05/30/17 08:07 Poikilocytosis Not Reportable 05/30/17 08:07 Anisocytosis 1+ 05/30/17 08:07 Microcytosis Not Reportable 05/30/17 08:07 Macrocytosis 1+ 05/30/17 08:07 Spherocytes Not Reportable 05/30/17 08:07 Pappenheimer Bodies Not Reportable 05/30/17 08:07 Sickle Cells Not Reportable 05/30/17 08:07 Target Cells Not Reportable 05/30/17 08:07 Tear Drop Cells Not Reportable 05/30/17 08:07 Ovalocytes Not Reportable 05/30/17 08:07 Helmet Cells Not Reportable 05/30/17 08:07 [place] Bodies Not Reportable 05/30/17 08:07 [place] Rings Not Reportable 05/30/17 08:07 [place] Cells Not Reportable 05/30/17 08:07 Bite Cells Not Reportable 05/30/17 08:07 Crenated Cell Not Reportable 05/30/17 08:07 Elliptocytes Not Reportable 05/30/17 08:07 Acanthocytes (Spur) Not Reportable 05/30/17 08:07 Rouleaux Not Reportable 05/30/17 08:07 Hemoglobin C Crystals Not Reportable 05/30/17 08:07 Schistocytes Not Reportable 05/30/17 08:07 Malaria parasites Not Reportable 05/30/17 08:07 Anshu Bodies Not Reportable 05/30/17 08:07 Hem Pathologist Commnt No 05/30/17 08:07 D-Dimer 193.66 ng/mlDDU (0-234) 05/30/17 13:19 Sodium 140 mmol/L (137-145) 06/03/17 04:37 Potassium 4.2 mmol/L (3.6-5.0) 06/03/17 04:37 Chloride 95.9 mmol/L (98-107) L 06/03/17 04:37 Carbon Dioxide 32 mmol/L (22-30) H 06/03/17 04:37 Anion Gap 16 mmol/L 06/03/17 04:37 BUN 11 mg/dL (7-17) 06/03/17 04:37 Creatinine 0.5 mg/dL (0.7-1.2) L 06/03/17 04:37 Estimated GFR > 60 ml/min 06/03/17 04:37 BUN/Creatinine Ratio 22 % 06/03/17 04:37 Glucose 77 mg/dL (65-100) 06/03/17 04:37 POC Glucose 72 (70-105) 06/03/17 05:24 Calcium 9.1 mg/dL (8.4-10.2) 06/03/17 04:37 Magnesium 1.90 mg/dL (1.7-2.3) 06/01/17 05:20 Troponin T < 0.010 ng/mL (0.00-0.029) 05/30/17 08:07 NT-Pro-B Natriuret Pep 44.91 pg/mL (0-900) 05/30/17 08:07
[2017-06-03] MEDS: PAMELOR PO SCH (22:29)
[2017-06-04] MEDS: TESSALON PERLES PO SCH ×2 (06:24→13:23)
[2017-06-04] MEDS: DUONEB *Not for PRN Use IH SCH ×2 (07:56→16:11)
[2017-06-04] MEDS ORDERED: D50W (25GM) Vial IV ONE (08:17)
[2017-06-04] MEDS: NOVOLOG SUB-Q SCH ×2 (08:33→11:57)
[2017-06-04] MEDS ORDERED: D50W (25GM) Syringe IV ONE (09:00)
[2017-06-04] MEDS: ZESTRIL PO SCH (10:23)
[2017-06-04] MEDS: MUCINEX ER PO SCH (10:23)
[2017-06-04 10:24] VITALS: BP 156/84
[2017-06-04] MEDS: GLUCOPHAGE PO SCH (10:24)
[2017-06-04] MEDS: KEPPRA PO SCH (10:24)
[2017-06-04] MEDS: ZITHROMAX PO SCH (10:24)
[2017-06-04] MEDS: ROBITUSSIN AC PO PRN (10:36)
--- NOTE | 2017-06-04 13:29 | Progress Note ---
Assessment and Plan Assessment and plan: Patient is a 52-year-old woman with history of chronic hypoxic respiratory failure on home O2 due to COPD, seizure disorder, osteoarthritis and type 2 diabetes mellitus with neuropathy who presents with shortness of breath and cough. Patient admits to running out of her oxygen because she has been living in a care home. pCXR reported as no acute findings -Acute on chronic hypoxic respiratory failure due to COPD exacerbation: Treated with oxygen,, IV steroids -Acute exacerbation of COPD: Add nebulizer treatments [id number], treat with IV antibiotics -Seizure disorder: Restart her home medication -Type 2 diabetes mellitus: Add SSI, ADA diet -Noncompliance: Counseling done -DVT/GI prophylaxis reviewed Full code Disposition: Consult case management for oxygen, if she qualifies for oxygen, anticipate discharge in 1-2 days on 2 liters of O2, once O2 setup then discharge. History Interval history: Patient was seen and examined. Follow-up on current diagnosis of shortness of breath and cough which is still present. Overnight uneventful. Patient denies any chest pain, nausea/vomiting or severe headaches. Imaging, nursing note, chart, labs and old chart reviewed. Discussed with patient. Hospitalist Physical - Physical exam Narrative exam: GEN: WDWN, NAD, AWAKE, ALERT, ORIENTATED 3 HEENT: NCAT, EOMI, PERRL, OP Clear NECK: supple, no adenopathy, no thyromegaly, no JVD CVS/HEART: RRR, NORMAL S1S2, NO JVD, pulses present bilaterally CHEST/LUNGS: Bilateral rhonchi, diminished breath sounds but much improved, Symmetrical chest expansion, good air entry bilaterally GI/Abdomen: soft, NTND, good bowel sounds, no guarding or rebound /Bladder: no suprapubic tenderness, no CVA or paraspinal tenderness EXT/Skin: no c/c/e, no obvious rash MSK: FROM x 4 Neuro: CN 2-12 grossly intact, no new focal deficits Psych: Anxious - Constitutional Vitals: Temp Pulse Resp BP Pulse Ox 99.2 F 84 20 156/84 97 06/04/17 07:49 06/04/17 08:11 06/04/17 08:11 06/04/17 10:23 06/04/17 10:00 General appearance: Absent: mild distress Results - Labs CBC & Chem 7: 06/03/17 04:37 06/03/17 04:37 Labs: Laboratory Last Values WBC 4.9 K/mm3 (4.5-11.0) 06/03/17 04:37 RBC 4.63 M/mm3 (3.65-5.03) 06/03/17 04:37 Hgb 14.1 gm/dl (10.1-14.3) 06/03/17 04:37 Hct 42.6 % (30.3-42.9) 06/03/17 04:37 MCV 92 fl (79-97) 06/03/17 04:37 MCH 31 pg (28-32) 06/03/17 04:37 MCHC 33 % (30-34) 06/03/17 04:37 RDW 13.7 % (13.2-15.2) 06/03/17 04:37 Plt Count 148 K/mm3 (140-440) 06/03/17 04:37 [place] % (Auto) Project Management 05/30/17 08:07 Add Manual Diff Complete 05/30/17 08:07 Total Counted 100 05/30/17 08:07 Seg Neuts % (Manual) 59.0 % (40.0-70.0) 05/30/17 08:07 Band Neutrophils % 0 % 05/30/17 08:07 Lymphocytes % (Manual) 20.0 % (13.4-35.0) 05/30/17 08:07 Reactive Lymphs % (Man) 0 % 05/30/17 08:07 Monocytes % (Manual) 17.0 % (0.0-7.3) H 05/30/17 08:07 Eosinophils % (Manual) 3.0 % (0.0-4.3) 05/30/17 08:07 Basophils % (Manual) 1.0 % (0.0-1.8) 05/30/17 08:07 Metamyelocytes % 0 % 05/30/17 08:07 Myelocytes % 0 % 05/30/17 08:07 Promyelocytes % 0 % 05/30/17 08:07 Blast Cells % 0 % 05/30/17 08:07 Nucleated RBC % Not Reportable 05/30/17 08:07 Seg Neutrophils # Man 2.7 K/mm3 (1.8-7.7) 05/30/17 08:07 Band Neutrophils # 0.0 K/mm3 05/30/17 08:07 Lymphocytes # (Manual) 0.9 K/mm3 (1.2-5.4) L 05/30/17 08:07 Abs React Lymphs (Man) 0.0 K/mm3 05/30/17 08:07 Monocytes # (Manual) 0.8 K/mm3 (0.0-0.8) 05/30/17 08:07 Eosinophils # (Manual) 0.1 K/mm3 (0.0-0.4) 05/30/17 08:07 Basophils # (Manual) 0.0 K/mm3 (0.0-0.1) 05/30/17 08:07 Metamyelocytes # 0.0 K/mm3 05/30/17 08:07 Myelocytes # 0.0 K/mm3 05/30/17 08:07 Promyelocytes # 0.0 K/mm3 05/30/17 08:07 Blast Cells # 0.0 K/mm3 05/30/17 08:07 WBC Morphology Not Reportable 05/30/17 08:07 Hypersegmented Neuts Not Reportable 05/30/17 08:07 Hyposegmented Neuts Not Reportable 05/30/17 08:07 Hypogranular Neuts Not Reportable 05/30/17 08:07 Smudge Cells Not Reportable 05/30/17 08:07 Toxic Granulation Not Reportable 05/30/17 08:07 Toxic Vacuolation Not Reportable 05/30/17 08:07 Dohle Bodies Not Reportable 05/30/17 08:07 Pelger-Huet Anomaly Not Reportable 05/30/17 08:07 [place] Rods Not Reportable 05/30/17 08:07 Platelet Estimate Consistent w auto 05/30/17 08:07 Clumped Platelets Not Reportable 05/30/17 08:07 Plt Clumps, EDTA Not Reportable 05/30/17 08:07 Large Platelets Not Reportable 05/30/17 08:07 Giant Platelets Not Reportable 05/30/17 08:07 Platelet Satelliting Not Reportable 05/30/17 08:07 Plt Morphology Comment Not Reportable 05/30/17 08:07 RBC Morphology Not Reportable 05/30/17 08:07 Dimorphic RBCs Not Reportable 05/30/17 08:07 Polychromasia Not Reportable 05/30/17 08:07 Hypochromasia Not Reportable 05/30/17 08:07 Poikilocytosis Not Reportable 05/30/17 08:07 Anisocytosis 1+ 05/30/17 08:07 Microcytosis Not Reportable 05/30/17 08:07 Macrocytosis 1+ 05/30/17 08:07 Spherocytes Not Reportable 05/30/17 08:07 Pappenheimer Bodies Not Reportable 05/30/17 08:07 Sickle Cells Not Reportable 05/30/17 08:07 Target Cells Not Reportable 05/30/17 08:07 Tear Drop Cells Not Reportable 05/30/17 08:07 Ovalocytes Not Reportable 05/30/17 08:07 Helmet Cells Not Reportable 05/30/17 08:07 [place] Bodies Not Reportable 05/30/17 08:07 [place] Rings Not Reportable 05/30/17 08:07 [place] Cells Not Reportable 05/30/17 08:07 Bite Cells Not Reportable 05/30/17 08:07 Crenated Cell Not Reportable 05/30/17 08:07 Elliptocytes Not Reportable 05/30/17 08:07 Acanthocytes (Spur) Not Reportable 05/30/17 08:07 Rouleaux Not Reportable 05/30/17 08:07 Hemoglobin C Crystals Not Reportable 05/30/17 08:07 Schistocytes Not Reportable 05/30/17 08:07 Malaria parasites Not Reportable 05/30/17 08:07 Anshu Bodies Not Reportable 05/30/17 08:07 Hem Pathologist Commnt No 05/30/17 08:07 D-Dimer 193.66 ng/mlDDU (0-234) 05/30/17 13:19 Sodium 140 mmol/L (137-145) 06/03/17 04:37 Potassium 4.2 mmol/L (3.6-5.0) 06/03/17 04:37 Chloride 95.9 mmol/L (98-107) L 06/03/17 04:37 Carbon Dioxide 32 mmol/L (22-30) H 06/03/17 04:37 Anion Gap 16 mmol/L 06/03/17 04:37 BUN 11 mg/dL (7-17) 06/03/17 04:37 Creatinine 0.5 mg/dL (0.7-1.2) L 06/03/17 04:37 Estimated GFR > 60 ml/min 06/03/17 04:37 BUN/Creatinine Ratio 22 % 06/03/17 04:37 Glucose 77 mg/dL (65-100) 06/03/17 04:37 POC Glucose 80 (70-105) 06/04/17 11:42 Calcium 9.1 mg/dL (8.4-10.2) 06/03/17 04:37 Magnesium 1.90 mg/dL (1.7-2.3) 06/01/17 05:20 Troponin T < 0.010 ng/mL (0.00-0.029) 05/30/17 08:07 NT-Pro-B Natriuret Pep 44.91 pg/mL (0-900) 05/30/17 08:07
--- NOTE | 2017-06-04 13:37 | Discharge Summary ---
Providers - Providers Date of Admission: 05/30/17 13:08 Date of discharge: 06/04/17 Attending physician: DIOGO JUAREZ Primary care physician: CHILI PEPPER GRINDER Hospitalization Condition: Stable Hospital course: Patient is a 52-year-old woman with history of chronic hypoxic respiratory failure on home O2 due to COPD, seizure disorder, osteoarthritis and type 2 diabetes mellitus with neuropathy who presents with shortness of breath and cough. Patient admits to running out of her oxygen because she has been living in a longterm. pCXR reported as no acute findings -Acute on chronic hypoxic respiratory failure due to COPD exacerbation: Treated with oxygen,, IV steroids -Acute exacerbation of COPD: Add nebulizer treatments [id number], treat with IV antibiotics -Seizure disorder: Restart her home medication -Type 2 diabetes mellitus: Add SSI, ADA diet -Noncompliance: Counseling done -DVT/GI prophylaxis reviewed Full code Disposition: Consult case management for oxygen, if she qualifies for oxygen, anticipate discharge in 1-2 days on 2 liters of O2, once O2 setup then discharge. Disposition: TO HOME OR SELFCARE Time spent for discharge: 32 minutes Core Measure Documentation - Palliative Care Palliative Care/ Comfort Measures: Not Applicable - Core Measures Any of the following diagnoses?: none - VTE Discharge Requirements Deep Vein Thrombosis/Pulmonary Embolism Present on Admission: No Has pt received <5 days of overlap therapy or INR<2.0: No Anticoagulant overlap therapy prescribed at discharge: No Contraindication No Overlap Therapy order at DC: Not Indicated Exam - Physical Exam Narrative exam: GEN: WDWN, NAD, AWAKE, ALERT, ORIENTATED 3 HEENT: NCAT, EOMI, PERRL, OP Clear NECK: supple, no adenopathy, no thyromegaly, no JVD CVS/HEART: RRR, NORMAL S1S2, NO JVD, pulses present bilaterally CHEST/LUNGS: Bilateral rhonchi, diminished breath sounds but much improved, Symmetrical chest expansion, good air entry bilaterally GI/Abdomen: soft, NTND, good bowel sounds, no guarding or rebound /Bladder: no suprapubic tenderness, no CVA or paraspinal tenderness EXT/Skin: no c/c/e, no obvious rash MSK: FROM x 4 Neuro: CN 2-12 grossly intact, no new focal deficits Psych: Anxious - Constitutional Vitals: Temp Pulse Resp BP Pulse Ox 99.2 F 84 20 156/84 97 02/07/18 07:49 06/04/17 08:11 06/04/17 08:11 06/04/17 10:23 06/04/17 10:00 Plan Activity: other (no strenous activity until cleared by pcp) Diet: diabetic Durable Medical Equipment Needed Upon Discharge: Oxygen Follow up with: PRIMARY CARE, [Primary Care Provider] - 3-5 Days SONIA RUEDA MD [Staff Physician] - 7 Days Prescriptions: Nortriptyline [Pamelor] 10 mg PO QHS #30 capsule ALBUTEROL Inhaler [ProAir HFA Inhaler] 2 puff IH QID PRN #1 unit PRN Reason: Shortness Of Breath ALBUTEROL NEB's [Proventil 0.083% NEBS] 2.5 mg IH Q4HRT PRN #30 nebu PRN Reason: Shortness Of Breath Azithromycin [Zithromax TAB] 500 mg PO QDAY #2 tablet guaiFENesin ER [Mucinex ER] 600 mg PO BID #10 tablet guaiFENesin/CODEINE [Robitussin AC] 10 ml PO Q4H PRN 3 Days #20 oral.liqd PRN Reason: Cough levETIRAcetam [Keppra TAB] 1,000 mg PO BID 30 Days #60 tablet Lisinopril [Zestril TAB] 10 mg PO QDAY #30 tablet metFORMIN [Glucophage] 500 mg PO BID #60 tablet methylPREDNISolone [Medrol Dose [place]] 1 dose PO DAILY #1 pack oxyCODONE [Roxicodone TAB] 5 mg PO Q6HR PRN #20 tablet PRN Reason: Pain , Severe (7-10) Ipratropium/Albuterol Sulfate [DUONEB *Not for PRN Use*] 1 ampul IH TIDRT #30 ampul.neb
== END 2017-06-04 16:00 | disposition home or self-care (01) | DRG 189 ==
LOC: ED 07:23 → 3A 13:08
PROVIDERS: ADMIT Internal Medicine; ATTEND Internal Medicine
DX: J96.21 Acute and chronic respiratory failure with hypoxia (principal); J44.1 Chronic obstructive pulmonary disease with (acute) exacerbation; G40.909 Epilepsy, unspecified, not intractable, without status epilepticus; M19.90 Unspecified osteoarthritis, unspecified site; E11.40 Type 2 diabetes mellitus with diabetic neuropathy, unspecified; F17.200 Nicotine dependence, unspecified, uncomplicated; I50.9 Heart failure, unspecified; Z60.2 Problems related to living alone; Z99.81 Dependence on supplemental oxygen; Z91.19 Patient's noncompliance with other medical treatment and regimen; Z71.89 Other specified counseling; Z86.73 Personal history of transient ischemic attack (TIA), and cerebral infarction without residual deficits; I25.2 Old myocardial infarction; Z83.3 Family history of diabetes mellitus; Z82.49 Family history of ischemic heart disease and other diseases of the circulatory system; Z88.0 Allergy status to penicillin
CPT/HCPCS: 36415; 71046; 80048; 82962; 83735; 83880; 84484; 85007; 85025; 85027; 85379; 93005; 93010; 94640; 94760; J0456; J1815; J2920; J3475; J7050; J7512

== ENCOUNTER 2017-10-13 11:55 | Inpatient (IN) | payer MEDICAID ==
[2017-10-13 13:50] LABS: Basophils # (Auto) 0.1 K/mm3 (0.0-0.1); Basophils % (Auto) 0.8 % (0.0-1.8); Eosinophils # (Auto) 0.2 K/mm3 (0.0-0.4); Eosinophils % (Auto) 3.2 % (0.0-4.3); Hematocrit 45.2 % (30.3-42.9); Lymphocytes # (Auto) 2.2 K/mm3 (1.2-5.4); Lymphocytes % (Auto) 32.3 % (13.4-35.0); Mean Corpuscular HGB Conc 33 % (30-34); Mean Corpuscular Hemoglobin 30 pg (28-32); Mean Corpuscular Volume 92 fl (79-97); Monocytes # (Auto) 0.6 K/mm3 (0.0-0.8); Monocytes % (Auto) 9.3 % (0.0-7.3); Platelet Count 205 K/mm3 (140-440); Red Blood Count 4.93 M/mm3 (3.65-5.03); Red Cell Distribution Width 13.6 % (13.2-15.2)
[2017-10-13 14:01] LABS: BUN/Creatinine Ratio 20; Blood Urea Nitrogen 14 mg/dL (7-17); Calcium 9.4 mg/dL (8.4-10.2); Hemolysis Index 21
--- NOTE | 2017-10-13 14:16 | XRay Report ---
CHEST 2 VIEWS INDICATION: Shortness of breath. COMPARISON: 05/30/2017 FINDINGS: PA and lateral chest radiographs demonstrate stable cardiomediastinal silhouette and various bony degenerative changes. Lungs remain clear. CONCLUSION: No acute chest process or significant interval change, as described. Thank you for the opportunity to participate in this patient's care.
[2017-10-13] MEDS ORDERED: ATROVENT IH ONE (14:22)
[2017-10-13] MEDS ORDERED: PROVENTIL IH ONE (14:22)
[2017-10-13] MEDS ORDERED: NITRO-BID 2% TP ONE (14:23)
[2017-10-13] MEDS ORDERED: NORCO 5/325 PO ONE (14:26)
--- NOTE | 2017-10-13 14:31 | Emergency Department Report ---
ED Chest Pain HPI - General Chief Complaint: Chest Pain Stated Complaint: CHEST PAIN Time Seen by Provider: 10/13/17 13:25 Source: patient, EMS Mode of arrival: Stretcher Limitations: No Limitations - History of Present Illness Initial Comments: 52-year-old female with a past medical history CHF, asthma, COPD O2 dependent, CVA, diabetes, CAD, and seizures presents with complaints of chest pain and shortness of breath last night and worsened this morning. Patient complains of stabbing left-sided chest pain radiating to arm. Pain is moderate, constant, worse with palpation and movement. Patient seen received a nitroglycerin 3 and aspirin prior to arrival without improvement. She complains shortness of breath and diaphoresis as well without any fever. Patient complains of a nonproductive cough times one week. No calf tenderness or edema. Patient states that her physician is located at [facility] in a couple of months ago she had a stress test and a cardiac cath showing multiple blockages however, patient is has no had stent or bypass surgery because she is a high risk patient into procedural intervention (as per patient). - Related Data Previous Rx's Medication Instructions Recorded Last Taken Type ALBUTEROL Inhaler [ProAir HFA 2 puff IH QID PRN #1 unit 06/04/17 Unknown Rx Inhaler] ALBUTEROL NEB's [Proventil 0.083% 2.5 mg IH Q4HRT PRN #30 nebu 06/04/17 Unknown Rx NEBS] Acetaminophen [Acetaminophen TAB] 325 mg PO Q4H PRN #30 tablet 06/04/17 Unknown Rx Azithromycin [Zithromax TAB] 500 mg PO QDAY #2 tablet 06/04/17 Unknown Rx Ipratropium/Albuterol Sulfate 1 ampul IH TIDRT #30 ampul.neb 06/04/17 Unknown Rx [DUONEB *Not for PRN Use*] Lisinopril [Zestril TAB] 10 mg PO QDAY #30 tablet 06/04/17 Unknown Rx Nortriptyline [Pamelor] 10 mg PO QHS #30 capsule 06/04/17 Unknown Rx guaiFENesin ER [Mucinex ER] 600 mg PO BID #10 tablet 06/04/17 Unknown Rx guaiFENesin/CODEINE [Robitussin AC] 10 ml PO Q4H PRN 3 Days #20 06/04/17 Unknown Rx oral.liqd levETIRAcetam [Keppra TAB] 1,000 mg PO BID 30 Days #60 tablet 06/04/17 Unknown Rx metFORMIN [Glucophage] 500 mg PO BID #60 tablet 06/04/17 Unknown Rx methylPREDNISolone [Medrol Dose 1 dose PO DAILY #1 pack 06/04/17 Unknown Rx [place]] oxyCODONE [Roxicodone TAB] 5 mg PO Q6HR PRN #20 tablet 06/04/17 Unknown Rx Allergies Allergy/AdvReac Type Severity Reaction Status Date / Time Penicillins Allergy Hives Verified 05/30/17 07:35 Heart Score - HEART Score History: Moderately suspicious EKG: Non-specific Age: 45-65 Risk factors: > 3 risk factors or hx of atherosclerotic disease Troponin: < normal limit HEART Score: 5 ED Review of Systems ROS: Stated complaint: CHEST PAIN Other details as noted in HPI Comment: All other systems reviewed and negative ED Past Medical Hx - Past Medical History Hx CVA: Yes Hx Heart Attack/AMI: Yes Hx Congestive Heart Failure: Yes Hx Diabetes: Yes Hx Seizures: Yes Hx Asthma: Yes Hx COPD: Yes Additional medical history: BRONCHITIS - Social History Smoking Status: Former Smoker Substance Use Type: None - Medications Home Medications: Home Medications Medication Instructions Recorded Confirmed Last Taken Type ALBUTEROL Inhaler [ProAir HFA 2 puff IH QID PRN #1 unit 06/04/17 Unknown Rx Inhaler] ALBUTEROL NEB's [Proventil 0.083% 2.5 mg IH Q4HRT PRN #30 nebu 06/04/17 Unknown Rx NEBS] Acetaminophen [Acetaminophen TAB] 325 mg PO Q4H PRN #30 tablet 06/04/17 Unknown Rx Azithromycin [Zithromax TAB] 500 mg PO QDAY #2 tablet 06/04/17 Unknown Rx Ipratropium/Albuterol Sulfate 1 ampul IH TIDRT #30 ampul.neb 06/04/17 Unknown Rx [DUONEB *Not for PRN Use*] Lisinopril [Zestril TAB] 10 mg PO QDAY #30 tablet 06/04/17 Unknown Rx Nortriptyline [Pamelor] 10 mg PO QHS #30 capsule 06/04/17 Unknown Rx guaiFENesin ER [Mucinex ER] 600 mg PO BID #10 tablet 06/04/17 Unknown Rx guaiFENesin/CODEINE [Robitussin AC] 10 ml PO Q4H PRN 3 Days #20 06/04/17 Unknown Rx oral.liqd levETIRAcetam [Keppra TAB] 1,000 mg PO BID 30 Days #60 tablet 06/04/17 Unknown Rx metFORMIN [Glucophage] 500 mg PO BID #60 tablet 06/04/17 Unknown Rx methylPREDNISolone [Medrol Dose 1 dose PO DAILY #1 pack 06/04/17 Unknown Rx [place]] oxyCODONE [Roxicodone TAB] 5 mg PO Q6HR PRN #20 tablet 06/04/17 Unknown Rx ED Physical Exam - General Limitations: No Limitations - Other Other exam information: General: No limitations, patient is alert in no acute distress Head exam: Atraumatic, normocephalic Eyes exam: Normal appearance ENT: Moist mucous membrane, normal oropharynx Neck exam: Normal inspection, full range of motion, no meningismus nontender Respiratory exam: No respiratory distress. Bilateral wheezing. Reproducible sternal and left lower chest wall tenderness Cardiovascular: Normal rate and rhythm, normal heart sounds Abdomen: Soft, nondistended, and nontender, with normal bowel sounds, no rebound, or guarding Extremity: Full range of motion normal inspection no deformity, no calf tenderness or edema Back: Normal Inspection, full range of motion, no tenderness Neurologic: Alert, oriented x3, cranial nerves intact, no motor or sensory deficit Psychiatric: normal affect, normal mood Skin: Warm, dry, intact ED Course Vital Signs 10/13/17 10/13/17 10/13/17 12:05 14:35 14:40 Temperature 98.3 F Pulse Rate 80 Pulse Rate [ 88 Anterior Bilateral Throughout] Respiratory 20 18 Rate Respiratory 20 Rate [Anterior Bilateral Throughout] Blood Pressure 115/77 Blood Pressure [Left] O2 Sat by Pulse 97 Oximetry 10/13/17 10/13/17 14:41 14:52 Temperature Pulse Rate 75 Pulse Rate [ 90 Anterior Bilateral Throughout] Respiratory 16 Rate Respiratory 20 Rate [Anterior Bilateral Throughout] Blood Pressure Blood Pressure 138/81 [Left] O2 Sat by Pulse 98 Oximetry TODD score - Todd Score Age > 65: (0) No Aspirin use within the Past 7 Days: (1) Yes 3 or more CAD Risk Factors: (1) Yes 2 or more Angina events in past 24 hrs: (1) Yes Known CAD with more than 50% Stenosis: (0) No Elevated Cardiac Markers: (0) No ST Deviation Greater than 0.5mm: (0) No TODD Score: 3 ED Medical Decision Making - Lab Data Result diagrams: 10/13/17 12:57 10/13/17 12:57 Lab Results 10/13/17 10/13/17 Range/Units 12:57 12:57 WBC 6.7 (4.5-11.0) K/mm3 RBC 4.93 (3.65-5.03) M/mm3 Hgb 15.0 H (10.1-14.3) gm/dl Hct 45.2 H (30.3-42.9) % MCV 92 (79-97) fl MCH 30 (28-32) pg MCHC 33 (30-34) % RDW 13.6 (13.2-15.2) % Plt Count 205 (140-440) K/mm3 Lymph % (Auto) 32.3 (13.4-35.0) % [place] % (Auto) 9.3 H (0.0-7.3) % Eos % (Auto) 3.2 (0.0-4.3) % Baso % (Auto) 0.8 (0.0-1.8) % Lymph # 2.2 (1.2-5.4) K/mm3 [place] # 0.6 (0.0-0.8) K/mm3 Eos # 0.2 (0.0-0.4) K/mm3 Baso # 0.1 (0.0-0.1) K/mm3 Seg Neutrophils % 54.4 (40.0-70.0) % Seg Neutrophils # 3.7 (1.8-7.7) K/mm3 Sodium 140 (137-145) mmol/L Potassium 4.0 (3.6-5.0) mmol/L Chloride 101.0 (98-107) mmol/L Carbon Dioxide 24 (22-30) mmol/L Anion Gap 19 mmol/L BUN 14 (7-17) mg/dL Creatinine 0.7 (0.7-1.2) mg/dL Estimated GFR > 60 ml/min BUN/Creatinine Ratio 20 % Glucose 89 (65-100) mg/dL Calcium 9.4 (8.4-10.2) mg/dL Troponin T < 0.010 (0.00-0.029) ng/mL - EKG Data -: EKG Interpreted by Me EKG shows normal: sinus rhythm, axis (qrs 29), QRS complexes (qrsd 91), ST-T waves (inf and lat t wave inf) Rate: normal - EKG Data When compared to previous EKG there are: no significant change (compared to ) - Radiology Data Radiology results: report reviewed CHEST 2 VIEWS INDICATION: Shortness of breath. COMPARISON: 05/30/2017 FINDINGS: PA and lateral chest radiographs demonstrate stable cardiomediastinal silhouette and various bony degenerative changes. Lungs remain clear. CONCLUSION: No acute chest process or significant interval change, as described. - Medical Decision Making She has reproducible chest wall pain to the point of cough for the past week. Possibility of muscle strain a COPD exacerbation is primary diagnosis. Initial troponin negative. EKG unchanged. Patient provides a history of recent stress tests and abnormal findings of cath as reported by pt and may benefit from cardiology evaluation and medication adjustment. Treated the ER with Nitropaste , [place], slight mid jaw, and nebulized treatments. Will admit to hospitalist. - Differential Diagnosis mi, pe, copd, chest wall pain Critical Care Time: No Critical care attestation.: If time is entered above; I have spent that time in minutes in the direct care of this critically ill patient, excluding procedure time. ED Disposition Clinical Impression: COPD exacerbation, Diabetes, Chest pain Disposition: OP ADMIT IP TO THIS HOSP Is pt being admited?: Yes Condition: Stable Time of Disposition: 15:18 (Dr Mckee/hosp)
--- NOTE | 2017-10-13 15:25 | History and Physical Report ---
History of Present Illness Chief complaint: I cant breathe, and im coughing History of present illness: 52 YO Female with MO, [place], CHF, DM, COPD, Obesity Hypoventilation, Seizure Disorder presents to ED for evaluation. Pt states that she has experienced shortness of breath and chest pain over the past 1 day with persistent symptoms during the same time frame as well as productive cough, with increased sputum production over the past 1 week, with worsening symptoms over the past 3 days . Pain is 5/10, substernal, worse with exertion and relieved with rest, substernal , nonradiating, associated with shortness of breath. Pt acknowledges subjective fever, but denies NVD, Palpitations, Syncope, Prolonged travel/ immobility, individual/family history of DVT/PE, unilateral leg swelling, calf pain, leg pain, BRBPR, unintentional weight loss, night sweats, bone pain, trauma, or recent ill contacts. Pt seen and evaluated in ED and found to have symptoms consistent with ACS, Heart Failure, COPD Exacerbation complicated by Respiratory failure Pt admitted to medical floor. Past History Past Medical History: acute OH, COPD, diabetes, heart failure, hypertension, seizures Past Surgical History: No surgical history, Other (reviewed) Social history: single Medications and Allergies Allergies Allergy/AdvReac Type Severity Reaction Status Date / Time Penicillins Allergy Hives Verified 05/30/17 07:35 Home Medications Medication Instructions Recorded Confirmed Last Taken Type Lisinopril [Zestril TAB] 10 mg PO QDAY #30 tablet 06/04/17 10/13/17 Unknown Rx Nortriptyline [Pamelor] 10 mg PO QHS #30 capsule 06/04/17 10/13/17 Unknown Rx Atorvastatin Calcium [Lipitor] 20 mg PO DAILY 10/13/17 10/13/17 Unknown History Diclofenac EC [Voltaren] 50 mg PO BID 10/13/17 10/13/17 Unknown History Ibuprofen 400 mg PO Q8H PRN 10/13/17 10/13/17 Unknown History levETIRAcetam [Keppra] 1,000 mg PO BID 10/13/17 10/13/17 Unknown History Review of Systems Constitutional: no weight loss, no weight gain, no fever, no chills Ears, nose, mouth and throat: no ear pain, no ear discharge, no tinnitis, no decreased hearing, no nose pain Breasts: no change in shape, no swelling, no mass Cardiovascular: chest pain, shortness of breath Respiratory: cough, cough with sputum, excessive sputum, shortness of breath Gastrointestinal: no nausea, no vomiting, no diarrhea, no constipation, no change in bowel habits Genitourinary Female: no pelvic pain, no flank pain, no menorrhagia, no dysuria , no urinary frequency, no urgency Rectal: no pain, no incontinence, no bleeding Musculoskeletal: no neck pain, no shooting arm pain, no arm numbness/tingling, no low back pain Integumentary: no rash, no pruritis, no redness, no sores, no wounds Neurological: no transient paralysis, no paralysis, no weakness, no parathesias , no numbness, no tingling, no seizures Psychiatric: no anxiety, no memory loss, no change in sleep habits, no sleep disturbances, no insomnia, no hypersomnia Endocrine: no cold intolerance, no heat intolerance, no polyphagia, no excessive thirst, no polydipsia, no polyuria Hematologic/Lymphatic: no easy bruising, no easy bleeding, no lymphadenopathy, no lymphedema Allergic/Immunologic: no urticaria, no persistent infections, no anaphylaxis, no angioedema Exam - Constitutional Vitals: Temp Pulse Resp BP Pulse Ox 98.3 F 90 20 138/81 98 10/13/17 12:05 10/13/17 14:52 10/13/17 14:52 10/13/17 14:41 10/13/17 14:41 General appearance: Present: mild distress, obese - EENT Eyes: Present: PERRL, miosis ENT: hearing intact, clear oral mucosa - Neck Neck: Present: supple, normal ROM - Respiratory Respiratory effort: labored Respiratory: bilateral: diminished, rhonchi - Cardiovascular Heart Sounds: Present: S1 & S2. Absent: rub, click - Extremities Extremities: pulses symmetrical, No edema Extremity abnormal: edema Peripheral Pulses: within normal limits - Abdominal General gastrointestinal: Present: soft, non-tender, non-distended, normal bowel sounds Female genitourinary: Present: normal - Integumentary Integumentary: Present: clear, warm, dry - Musculoskeletal Musculoskeletal: generalized weakness - Psychiatric Psychiatric: appropriate mood/affect, intact judgment & insight - Neurologic Neurologic: CNII-XII intact, moves all extremities Results - Labs CBC & Chem 7: 10/13/17 12:57 10/13/17 12:57 Labs: Abnormal lab results 10/13/17 Range/Units 12:57 Hgb 15.0 H (10.1-14.3) gm/dl Hct 45.2 H (30.3-42.9) % [place] % (Auto) 9.3 H (0.0-7.3) % Assessment and Plan - Patient Problems (1) ACS (acute coronary syndrome) Current Visit: Yes Status: Acute Plan to address problem: Admit to telemetry, Serial cardiac enzymes, EKG, telemetry, morphine, supplemental oxygen, nitro, aspirin, cardiology consulted in ED (2) COPD exacerbation Current Visit: Yes Status: Acute Plan to address problem: supplemental oxygen, nebulizer therapy NIPPV as clinically indicated, supportive care, resume medical management. (3) Diabetes Current Visit: Yes Status: Acute Plan to address problem: ADA diet, insulin, accu check (4) Acute respiratory failure Current Visit: No Status: Acute Qualifiers: Respiratory failure complication: hypoxia Qualified Code(s): J96.01 - Acute respiratory failure with hypoxia Plan to address problem: Suppelmental oxygen, nebulizer therapy, NIPPV as clinically indicated (5) CHF (congestive heart failure) Current Visit: No Status: Suspected Qualifiers: Qualified Code(s): I50.21 - Acute systolic (congestive) heart failure Plan to address problem: Admit to telemetry, Echo, cardiology consulted in ED, BNP, D dimer, Chest x ray , supplemental oxygen, strict I/O, Daily weight, diuresis, monitor uop q shift, (6) DVT prophylaxis Current Visit: No Status: Acute Plan to address problem: SCD to BLE while in bed
[2017-10-13] MEDS ORDERED: ZOFRAN IV PRN (15:28)
[2017-10-13] MEDS ORDERED: SODIUM CHLORIDE FLUSH SYRINGE 10 ML IV PRN (15:28)
[2017-10-13] MEDS ORDERED: PROVENTIL IH PRN ×2 (15:28→15:31)
[2017-10-13] MEDS ORDERED: PROAIR IH PRN (15:31)
[2017-10-13] MEDS ORDERED: TYLENOL PO PRN (15:31)
[2017-10-13] MEDS ORDERED: ROBITUSSIN AC PO PRN (15:31)
[2017-10-13] MEDS: LASIX IV SCH (18:10)
[2017-10-13] MEDS: ROXICODONE PO PRN (18:10)
[2017-10-13] MEDS ORDERED: NON-FORMULARY (Levetiracetam [Keppra Tab] 1,000 MG) PO SCH (22:00)
[2017-10-13] MEDS: TYLENOL PO PRN (22:52)
[2017-10-13] MEDS: KEPPRA PO SCH (22:53)
[2017-10-13] MEDS: PAMELOR PO SCH (22:54)
[2017-10-13] MEDS: SODIUM CHLORIDE FLUSH SYRINGE 10 ML IV SCH (22:54)
[2017-10-13] MEDS: MUCINEX ER PO SCH (22:54)
[2017-10-14] MEDS: ROXICODONE PO PRN (06:25)
[2017-10-14] MEDS: LASIX IV SCH ×2 (06:25→17:29)
[2017-10-14] MEDS: TYLENOL PO PRN ×2 (09:22→17:31)
[2017-10-14] MEDS: MUCINEX ER PO SCH ×2 (09:23→21:50)
[2017-10-14] MEDS: ZESTRIL PO SCH (09:24)
[2017-10-14] MEDS: KEPPRA PO SCH ×2 (09:25→21:50)
--- NOTE | 2017-10-14 10:24 | Progress Note ---
Assessment and Plan Assessment and plan: Patient is a 52 yo woman with a history of MO, CT, CHF, DM type 2, Obesity Hypoventilation syndrome, COPD O2 dependent, CVA, CAD, and seizures who pw sob and chest pains. * CHEST 2 VIEWS CONCLUSION: No acute chest process or significant interval change. -Acute on chronic hypoxic respiratory failure, poa: Suppelmental oxygen, nebulizer therapy, NIPPV as clinically indicated -Acute COPD exacerbation: supplemental oxygen, nebulizer therapy NIPPV as clinically indicated, supportive care, resume medical management. -Diabetes mellitus type 2: ADA diet, insulin, accu check -Chest pains, atypical, costochronditis, poa, suspected: treat supportively, consulted Cardiology -CHF (congestive heart failure), chronic diastolic heart failure: Admit to telemetry, Echo, cardiology consulted in ED, normal pro-BNP and Chest x ray, strict I/O, Daily weight, diuresis, monitor uop q shift, -Hypertension: cardiac diet, continue antihypertensives -DVT prophylaxis: SCD to BLE while in bed -ACS (acute coronary syndrome) ruled out via Serial cardiac enzymes, EKG, telemetry History Interval history: Patient was seen and examined. Follow-up on current diagnosis of chest pain, shortness breath. Overnight uneventful. Patient denies any nausea/vomiting or severe headaches. Imaging, nursing note, chart, labs and old chart reviewed. Discussed with patient. Hospitalist Physical - Physical exam Narrative exam: GEN: WDWN, bmi 42, NAD, Awake, Alert, Orientated x 3 HEENT: NCAT, EOMI, PERRL, OP Clear NECK: supple, no adenopathy, no thyromegaly, no JVD CVS/HEART: RRR, normal S1S2, pulses present bilaterally CHEST/LUNGS: diminished bilateral, Symmetrical chest expansion, good air entry bilaterally, reproducible cw tenderness GI/Abdomen: soft, NTND, good bowel sounds, no guarding or rebound /Bladder: no suprapubic tenderness, no CVA or paraspinal tenderness EXT/Skin: no c/c/e, no obvious rash MSK: FROM x 4 Neuro: CN 2-12 grossly intact, no new focal deficits Psych: calm - Constitutional Vitals: Temp Pulse Resp BP Pulse Ox 98.3 F 72 22 150/80 94 10/14/17 04:49 10/14/17 09:24 10/14/17 06:25 10/14/17 04:49 10/14/17 04:49 General appearance: Present: mild distress, obese Results - Labs CBC & Chem 7: 10/13/17 12:57 10/13/17 12:57 Labs: Laboratory Last Values WBC 6.7 K/mm3 (4.5-11.0) 10/13/17 12:57 RBC 4.93 M/mm3 (3.65-5.03) 10/13/17 12:57 Hgb 15.0 gm/dl (10.1-14.3) H 10/13/17 12:57 Hct 45.2 % (30.3-42.9) H 10/13/17 12:57 MCV 92 fl (79-97) 10/13/17 12:57 MCH 30 pg (28-32) 10/13/17 12:57 MCHC 33 % (30-34) 10/13/17 12:57 RDW 13.6 % (13.2-15.2) 10/13/17 12:57 Plt Count 205 K/mm3 (140-440) 10/13/17 12:57 Lymph % (Auto) 32.3 % (13.4-35.0) 10/13/17 12:57 [place] % (Auto) 9.3 % (0.0-7.3) H 10/13/17 12:57 Eos % (Auto) 3.2 % (0.0-4.3) 10/13/17 12:57 Baso % (Auto) 0.8 % (0.0-1.8) 10/13/17 12:57 Lymph # 2.2 K/mm3 (1.2-5.4) 10/13/17 12:57 [place] # 0.6 K/mm3 (0.0-0.8) 10/13/17 12:57 Eos # 0.2 K/mm3 (0.0-0.4) 10/13/17 12:57 Baso # 0.1 K/mm3 (0.0-0.1) 10/13/17 12:57 Seg Neutrophils % 54.4 % (40.0-70.0) 10/13/17 12:57 Seg Neutrophils # 3.7 K/mm3 (1.8-7.7) 10/13/17 12:57 D-Dimer 223.20 ng/mlDDU (0-234) 10/13/17 15:50 Sodium 140 mmol/L (137-145) 10/13/17 12:57 Potassium 4.0 mmol/L (3.6-5.0) 10/13/17 12:57 Chloride 101.0 mmol/L (98-107) 10/13/17 12:57 Carbon Dioxide 24 mmol/L (22-30) 10/13/17 12:57 Anion Gap 19 mmol/L 10/13/17 12:57 BUN 14 mg/dL (7-17) 10/13/17 12:57 Creatinine 0.7 mg/dL (0.7-1.2) 10/13/17 12:57 Estimated GFR > 60 ml/min 10/13/17 12:57 BUN/Creatinine Ratio 20 % 10/13/17 12:57 Glucose 89 mg/dL (65-100) 10/13/17 12:57 POC Glucose 107 (70-105) H 10/14/17 06:34 Calcium 9.4 mg/dL (8.4-10.2) 10/13/17 12:57 Troponin T < 0.010 ng/mL (0.00-0.029) 10/13/17 21:58 NT-Pro-B Natriuret Pep 25.03 pg/mL (0-900) 10/13/17 15:50
--- NOTE | 2017-10-14 15:00 | Consultation ---
History of Present Illness Consult date: 10/14/17 Consult reason: chest pain, shortness of breath History of present illness: Patient is a 52-year-old woman with chronic lung disease and obesity, who presents with chest pain or shortness of breath of one days duration. She reports a cardiac history of coronary artery disease, states that 2 months ago she underwent a cardiac catheterization at [facility] which reported multivessel disease for which she was recommended for medical therapy. She looks and feels better after emergency room management, no further chest pain. ECG on this presentation is in normal sinus rhythm with nonspecific appearing inferolateral T-wave abnormalities. Chest x-ray reveals a normal mild enlargement of the right atrial silhouette, otherwise clear lungs, with no evidence of interstitial edema or heart failure. Past History Past Medical History: CAD, COPD, diabetes, hypertension, seizures Past Surgical History: No surgical history Social history: single Medications and Allergies Allergies Allergy/AdvReac Type Severity Reaction Status Date / Time Penicillins Allergy Hives Verified 05/30/17 07:35 Home Medications Medication Instructions Recorded Confirmed Last Taken Type Lisinopril [Zestril TAB] 10 mg PO QDAY #30 tablet 06/04/17 10/13/17 Unknown Rx Nortriptyline [Pamelor] 10 mg PO QHS #30 capsule 06/04/17 10/13/17 Unknown Rx Atorvastatin Calcium [Lipitor] 20 mg PO DAILY 10/13/17 10/13/17 Unknown History Diclofenac EC [Voltaren] 50 mg PO BID 10/13/17 10/13/17 Unknown History Ibuprofen 400 mg PO Q8H PRN 10/13/17 10/13/17 Unknown History levETIRAcetam [Keppra] 1,000 mg PO BID 10/13/17 10/13/17 Unknown History Active Meds: Active Medications Acetaminophen (Tylenol) 650 mg PO Q4H PRN PRN Reason: Pain MILD(1-3)/Fever >100.5/ADAMS Last Admin: 10/14/17 09:22 Dose: 650 mg Albuterol (Proventil) 2.5 mg IH Q4HRT PRN PRN Reason: Shortness Of Breath Furosemide (Lasix) 20 mg IV BID@0600,1800 [facility] Last Admin: 10/14/17 06:25 Dose: 20 mg Guaifenesin (Mucinex Er) 600 mg PO BID [facility] Last Admin: 10/14/17 09:23 Dose: 600 mg Levetiracetam (Keppra) 1,000 mg PO BID [facility] Last Admin: 10/14/17 09:25 Dose: 1,000 mg Lisinopril (Zestril) 10 mg PO QDAY [facility] Last Admin: 10/14/17 09:24 Dose: 10 mg Nortriptyline HCl (Pamelor) 10 mg PO QHS [facility] Last Admin: 10/13/17 22:54 Dose: 10 mg Ondansetron HCl (Zofran) 4 mg IV Q8H PRN PRN Reason: Nausea And Vomiting Oxycodone HCl (Roxicodone) 5 mg PO Q6HR PRN PRN Reason: Pain , Severe (7-10) Last Admin: 10/14/17 06:25 Dose: 5 mg Pseudoephedrine/Acetam/Chlorphenir (Robitussin Ac) 10 ml PO Q4H PRN PRN Reason: Cough Sodium Chloride (Sodium Chloride Flush Syringe 10 Ml) 10 ml IV BID [facility] Last Admin: 10/13/17 22:54 Dose: 10 ml Sodium Chloride (Sodium Chloride Flush Syringe 10 Ml) 10 ml IV PRN PRN PRN Reason: LINE FLUSH Review of Systems Cardiovascular: chest pain, shortness of breath, no orthopnea, no palpitations, no rapid/irregular heart beat, no edema, no syncope, no lightheadedness Physical Examination Vital Signs Temp Pulse Resp BP Pulse Ox 98.3 F 80 20 115/77 97 10/13/17 12:05 10/13/17 12:05 10/13/17 12:05 10/13/17 12:05 10/13/17 12:05 General appearance: no acute distress HEENT: Positive: PERRL Neck: Positive: neck supple Cardiac: Positive: Reg Rate and Rhythm Lungs: Positive: Decreased Breath Sounds Neuro: Positive: Grossly Intact Abdomen: Positive: Soft Female genitourinary: deferred Skin: Positive: Clear Extremities: Absent: edema Results 10/13/17 12:57 10/13/17 12:57 EKG interpretations - Telemetry EKG Rhythm: Sinus Rhythm Assessment and Plan - Patient Problems (1) Chest pain Current Visit: Yes Status: Acute Plan to address problem: Patient presents with chest pain, gives a history of recent cardiac catheterization at [facility]. We'll obtain the cardiac catheterization report for further review. Further cardiac recommendation will be based on clinical course.
[2017-10-14] MEDS: SODIUM CHLORIDE FLUSH SYRINGE 10 ML IV SCH ×2 (17:30→21:50)
[2017-10-14] MEDS: PAMELOR PO SCH (21:50)
[2017-10-15] MEDS: LASIX IV SCH ×2 (06:17→18:38)
[2017-10-15] MEDS: TYLENOL PO PRN (06:52)
--- NOTE | 2017-10-15 09:55 | Progress Note ---
Assessment and Plan Assessment and plan: Patient is a 52 yo woman with a history of [place], [place], CHF, DM type 2, Obesity Hypoventilation syndrome, COPD O2 dependent, CVA, CAD, and seizures who pw sob and chest pains. * CHEST 2 VIEWS CONCLUSION: No acute chest process or significant interval change. -Acute on chronic hypoxic respiratory failure, poa: Suppelmental oxygen, nebulizer therapy, NIPPV as clinically indicated -Acute COPD exacerbation: supplemental oxygen, nebulizer therapy NIPPV as clinically indicated, supportive care, resume medical management. -Diabetes mellitus type 2: ADA diet, insulin, accu check -Chest pains, atypical, costochronditis, poa, suspected: treat supportively, consulted Cardiology -CHF (congestive heart failure), chronic diastolic heart failure: Admit to telemetry, Echo, cardiology consulted in ED, normal pro-BNP and Chest x ray, strict I/O, Daily weight, diuresis, monitor uop q shift, -Hypertension: cardiac diet, continue antihypertensives -DVT prophylaxis: SCD to BLE while in bed -ACS (acute coronary syndrome) ruled out via Serial cardiac enzymes, EKG, telemetry Recent Cardiac cath report from [facility] pending. D/C once cleared by Cardiology==>Cardiology has signed off but labs shows she is hypoglycemic, will give stat dose of dextrose and accuchecks. Anticipate discharge tomorrow with stable hypoglycemia History Interval history: Patient was seen and examined. Follow-up on current diagnosis of chest pain, shortness breath. Overnight uneventful. Patient denies any nausea/vomiting or severe headaches. Imaging, nursing note, chart, labs and old chart reviewed. Discussed with patient. Hospitalist Physical - Physical exam Narrative exam: GEN: WDWN, bmi 42, NAD, Awake, Alert, Orientated x 3 HEENT: NCAT, EOMI, PERRL, OP Clear NECK: supple, no adenopathy, no thyromegaly, no JVD CVS/HEART: RRR, normal S1S2, pulses present bilaterally CHEST/LUNGS: diminished bilateral, Symmetrical chest expansion, good air entry bilaterally, reproducible cw tenderness GI/Abdomen: soft, NTND, good bowel sounds, no guarding or rebound /Bladder: no suprapubic tenderness, no CVA or paraspinal tenderness EXT/Skin: no c/c/e, no obvious rash MSK: FROM x 4 Neuro: CN 2-12 grossly intact, no new focal deficits Psych: calm - Constitutional Vitals: Temp Pulse Resp BP Pulse Ox 97.7 F 75 20 126/77 97 10/15/17 07:41 10/15/17 09:13 10/15/17 07:41 10/15/17 07:41 10/15/17 07:41 General appearance: Present: obese. Absent: mild distress Results - Labs CBC & Chem 7: 10/13/17 12:57 10/13/17 12:57 Labs: Laboratory Last Values WBC 6.7 K/mm3 (4.5-11.0) 10/13/17 12:57 RBC 4.93 M/mm3 (3.65-5.03) 10/13/17 12:57 Hgb 15.0 gm/dl (10.1-14.3) H 10/13/17 12:57 Hct 45.2 % (30.3-42.9) H 10/13/17 12:57 MCV 92 fl (79-97) 10/13/17 12:57 MCH 30 pg (28-32) 10/13/17 12:57 MCHC 33 % (30-34) 10/13/17 12:57 RDW 13.6 % (13.2-15.2) 10/13/17 12:57 Plt Count 205 K/mm3 (140-440) 10/13/17 12:57 Lymph % (Auto) 32.3 % (13.4-35.0) 10/13/17 12:57 [place] % (Auto) 9.3 % (0.0-7.3) H 10/13/17 12:57 Eos % (Auto) 3.2 % (0.0-4.3) 10/13/17 12:57 Baso % (Auto) 0.8 % (0.0-1.8) 10/13/17 12:57 Lymph # 2.2 K/mm3 (1.2-5.4) 10/13/17 12:57 [place] # 0.6 K/mm3 (0.0-0.8) 10/13/17 12:57 Eos # 0.2 K/mm3 (0.0-0.4) 10/13/17 12:57 Baso # 0.1 K/mm3 (0.0-0.1) 10/13/17 12:57 Seg Neutrophils % 54.4 % (40.0-70.0) 10/13/17 12:57 Seg Neutrophils # 3.7 K/mm3 (1.8-7.7) 10/13/17 12:57 D-Dimer 223.20 ng/mlDDU (0-234) 10/13/17 15:50 Sodium 140 mmol/L (137-145) 10/13/17 12:57 Potassium 4.0 mmol/L (3.6-5.0) 10/13/17 12:57 Chloride 101.0 mmol/L (98-107) 10/13/17 12:57 Carbon Dioxide 24 mmol/L (22-30) 10/13/17 12:57 Anion Gap 19 mmol/L 10/13/17 12:57 BUN 14 mg/dL (7-17) 10/13/17 12:57 Creatinine 0.7 mg/dL (0.7-1.2) 10/13/17 12:57 Estimated GFR > 60 ml/min 10/13/17 12:57 BUN/Creatinine Ratio 20 % 10/13/17 12:57 Glucose 89 mg/dL (65-100) 10/13/17 12:57 POC Glucose 81 (70-105) 10/15/17 06:19 Calcium 9.4 mg/dL (8.4-10.2) 10/13/17 12:57 Troponin T < 0.010 ng/mL (0.00-0.029) 10/13/17 21:58 NT-Pro-B Natriuret Pep 25.03 pg/mL (0-900) 10/13/17 15:50
[2017-10-15] MEDS: KEPPRA PO SCH ×2 (10:12→22:14)
[2017-10-15] MEDS: ZESTRIL PO SCH (10:13)
[2017-10-15] MEDS: MUCINEX ER PO SCH ×2 (10:13→22:14)
[2017-10-15] MEDS: SODIUM CHLORIDE FLUSH SYRINGE 10 ML IV SCH ×2 (10:13→22:16)
--- NOTE | 2017-10-15 12:26 | Progress Note ---
Assessment and Plan Chest pain Chronic lung disease Obesity Hx of Seizures Diabetes Hypertension Normal LVEF by echo this admission. Subjective Date of service: 10/15/17 Interval history: Patient reports she is feeling somewhat better. No distress noted. Records from [place] reviewed. There was no prior coronary angiogram done. Objective Vital Signs Temp Pulse Resp BP Pulse Ox 10/15/17 09:13 75 10/15/17 07:41 97.7 F 70 20 126/77 97 10/15/17 05:00 70 10/15/17 04:37 98.1 F 70 18 139/74 99 10/14/17 23:32 98.4 F 70 18 111/70 95 10/14/17 22:00 18 99 10/14/17 21:00 66 10/14/17 19:31 98.2 F 69 18 105/65 99 10/14/17 16:18 98.4 F 70 20 122/67 98 10/14/17 12:42 98.0 F 77 20 120/69 99 - Physical Examination General: No Apparent Distress HEENT: Positive: PERRL Cardiac: Positive: Reg Rate and Rhythm Neuro: Positive: Grossly Intact Extremities: Absent: edema
[2017-10-15] MEDS ORDERED: D50W (25GM) Syringe IV PRN (13:35)
[2017-10-15] MEDS ORDERED: D50W (25GM) Syringe IV ONE (14:00)
[2017-10-15] MEDS: HumaLOG SUB-Q SCH ×2 (17:59→22:16)
[2017-10-15] MEDS: PAMELOR PO SCH (22:15)
[2017-10-15] MEDS: ROXICODONE PO PRN (22:15)
[2017-10-16] MEDS: LASIX IV SCH (06:25)
[2017-10-16 07:03] LABS: Mean Corpuscular HGB Conc 33 % (30-34); Mean Corpuscular Hemoglobin 30 pg (28-32); Mean Corpuscular Volume 92 fl (79-97); Platelet Count 220 K/mm3 (140-440); Red Blood Count 5.01 M/mm3 (3.65-5.03); Red Cell Distribution Width 13.4 % (13.2-15.2)
[2017-10-16 07:28] LABS: BUN/Creatinine Ratio 23; Blood Urea Nitrogen 16 mg/dL (7-17); Calcium 9.3 mg/dL (8.4-10.2); Hemolysis Index 4
[2017-10-16] MEDS: HumaLOG SUB-Q SCH ×2 (07:30→13:27)
[2017-10-16] MEDS: MUCINEX ER PO SCH (09:48)
[2017-10-16] MEDS: KEPPRA PO SCH (09:49)
[2017-10-16] MEDS: ZESTRIL PO SCH (09:50)
[2017-10-16] MEDS: SODIUM CHLORIDE FLUSH SYRINGE 10 ML IV SCH (09:50)
[2017-10-16 09:51] VITALS: BP 120/80
--- NOTE | 2017-10-16 10:21 | Discharge Summary ---
Providers - Providers Date of Admission: 10/13/17 15:28 Date of discharge: 10/16/17 Attending physician: DIOGO JUAREZ Primary care physician: [employer]LOOR MANAGER Hospitalization Condition: Stable Hospital course: Patient is a 52 yo woman with a history of [place], [place], CHF, DM type 2, Obesity Hypoventilation syndrome, COPD O2 dependent, CVA, CAD, and seizures who pw sob and chest pains. * CHEST 2 VIEWS CONCLUSION: No acute chest process or significant interval change. -Acute on chronic hypoxic respiratory failure, poa: Suppelmental oxygen, nebulizer therapy, NIPPV as clinically indicated -Acute COPD exacerbation: supplemental oxygen, nebulizer therapy NIPPV as clinically indicated, supportive care, resume medical management. -Diabetes mellitus type 2: ADA diet, insulin, accu check -Chest pains, atypical, costochrondritis, poa, suspected: treat supportively, consulted Cardiology -CHF (congestive heart failure), chronic diastolic heart failure: Admit to telemetry, Echo, cardiology consulted in ED, normal pro-BNP and Chest x ray, strict I/O, Daily weight, diuresis, monitor uop q shift, -Hypertension: cardiac diet, continue antihypertensives -Hypoglycemia -DVT prophylaxis: SCD to BLE while in bed -ACS (acute coronary syndrome) ruled out via Serial cardiac enzymes, EKG, telemetry Recent Cardiac cath report from [facility] reviewed by Cardiology and they signed off but labs shows she is hypoglycemic, now stable Anticipate discharge Disposition: DC-01 TO HOME OR SELFCARE Time spent for discharge: 35 minutes Core Measure Documentation - Palliative Care Palliative Care/ Comfort Measures: Not Applicable - Core Measures Any of the following diagnoses?: none - VTE Discharge Requirements Deep Vein Thrombosis/Pulmonary Embolism Present on Admission: No Has pt received <5 days of overlap therapy or INR<2.0: No Anticoagulant overlap therapy prescribed at discharge: No Contraindication No Overlap Therapy order at DC: Not Indicated Exam - Physical Exam Narrative exam: GEN: WDWN, bmi 42, NAD, Awake, Alert, Orientated x 3 HEENT: NCAT, EOMI, PERRL, OP Clear NECK: supple, no adenopathy, no thyromegaly, no JVD CVS/HEART: RRR, normal S1S2, pulses present bilaterally CHEST/LUNGS: diminished bilateral, Symmetrical chest expansion, good air entry bilaterally, reproducible cw tenderness GI/Abdomen: soft, NTND, good bowel sounds, no guarding or rebound /Bladder: no suprapubic tenderness, no CVA or paraspinal tenderness EXT/Skin: no c/c/e, no obvious rash MSK: FROM x 4 Neuro: CN 2-12 grossly intact, no new focal deficits Psych: calm - Constitutional Vitals: Temp Pulse Resp BP Pulse Ox 98.2 F 76 18 120/80 96 10/16/17 08:05 10/16/17 09:50 10/16/17 08:05 10/16/17 09:50 10/16/17 08:05 Plan Activity: other (no strenous activities until cleared by PCP) Diet: low salt, diabetic Durable Medical Equipment Needed Upon Discharge: Nebulizer Follow up with: KAIA RANKIN MD [Primary Care Provider] - 7 Days SILVESTRE ONOFRE MD [Staff Physician] - 7 Days Prescriptions: ALBUTEROL NEB's [Proventil 0.083% NEBS] 2.5 mg IH Q4HRT PRN #30 nebu PRN Reason: Shortness Of Breath Budesonide/Formoterol Fumarate [Symbicort 160-4.5 Mcg Inhaler] 1 puff IH BID #1 unit Furosemide [Lasix] 20 mg PO BID #60 tablet guaiFENesin ER [Mucinex ER] 600 mg PO BID PRN #10 tablet PRN Reason: Cough Ipratropium/Albuter (Nf) [Combivent (Nf)] 2 puff IH BID #1 inha levETIRAcetam [Keppra TAB] 1,000 mg PO BID 31 Days tablet Levofloxacin [Levaquin] 750 mg PO QDAY #7 tablet Lisinopril [Zestril TAB] 10 mg PO QDAY #30 tablet methylPREDNISolone [Medrol Dose [place]] 1 dose PO DAILY #1 pack oxyCODONE [Roxicodone TAB] 5 mg PO Q6HR PRN #12 tablet PRN Reason: Pain , Severe (7-10)
== END 2017-10-16 15:19 | disposition home or self-care (01) | DRG 205 ==
LOC: ED 11:55 → 4A 15:28
PROVIDERS: ADMIT Internal Medicine; ATTEND Internal Medicine
DX: M94.0 Chondrocostal junction syndrome [Tietze] (principal); J96.21 Acute and chronic respiratory failure with hypoxia; J44.1 Chronic obstructive pulmonary disease with (acute) exacerbation; I50.32 Chronic diastolic (congestive) heart failure; Z88.0 Allergy status to penicillin; Z99.81 Dependence on supplemental oxygen; Z86.73 Personal history of transient ischemic attack (TIA), and cerebral infarction without residual deficits; I25.2 Old myocardial infarction; Z91.19 Patient's noncompliance with other medical treatment and regimen; Z79.899 Other long term (current) drug therapy; Z79.84 Long term (current) use of oral hypoglycemic drugs; G40.909 Epilepsy, unspecified, not intractable, without status epilepticus; E66.9 Obesity, unspecified; Z68.41 Body mass index [BMI] 40.0-44.9, adult; E11.649 Type 2 diabetes mellitus with hypoglycemia without coma
CPT/HCPCS: 36415; 71046; 80048; 82962; 83880; 84484; 85025; 85027; 85379; 93005; 93010; 93306; 94640; 94760; 99285; J1940; J2930

== ENCOUNTER 2018-05-26 11:19 | Emergency (ER) | payer MEDICAID ==
[2018-05-26 11:33] VITALS: BP 140/115
[2018-05-26] MEDS ORDERED: ZOFRAN IV ONE (11:36)
[2018-05-26] MEDS ORDERED: MORPHINE IV ONE (11:36)
--- NOTE | 2018-05-26 11:43 | Emergency Department Report ---
ED Fall HPI - General Stated Complaint: FALL Time Seen by Provider: 05/26/18 11:29 - History of Present Illness Initial Comments: Mrs. Elias is a 53 yo female with hx of T2DM, [place], CHF, COPD O2 dependent, CVA, CAD and seizures who presents s/p fall. She slipped and fell in bathtub, striking her head, landing on her back. She has severe pain in lower back radiating to hip. She has headache. She is concerned about trauma to head. She takes a blood thinner. She has been in her normal state of health. Has chronic back pain since trauma after fall 30 years ago. Her PCP manages pain with Lortab. No weakness or paresthesias in her extremities. +continued tobacco abuse MD Complaint: fall -: Sudden, This morning Fall From: standing Fall Witnessed: no Place Fall Occurred: home Loss of Consciousness: none Prolonged Down Time?: no Symptoms Prior to Fall: none Location: head, back Severity: severe Quality: dull Context: tripped/slipped Associated Symptoms: headache, other (back and hip pain) - Related Data Home Medications Medication Instructions Recorded Confirmed Last Taken Atorvastatin Calcium [Lipitor] 10 mg PO DAILY 04/08/18 04/08/18 Unknown Benztropine [Cogentin] 2 mg PO HS 04/08/18 04/08/18 Unknown Fenofibrate [Lipofen] 54 mg PO QDAY 04/08/18 04/08/18 Unknown Sertraline [Zoloft] 50 mg PO QAM 04/08/18 04/08/18 Unknown metFORMIN [Glucophage] 500 mg PO BID 04/08/18 04/08/18 Unknown risperiDONE [Risperdal] 2 mg PO HS 04/08/18 04/08/18 Unknown Phenytoin Sodium Extended 300 mg PO QDAY 04/09/18 04/09/18 04/07/18 10:00 [Dilantin] Previous Rx's Medication Instructions Recorded Last Taken Type Lisinopril [Zestril TAB] 10 mg PO QDAY #30 tablet 10/16/17 Unknown Rx ALBUTEROL Inhaler(NF) [VENTOLIN 2 puff IH QID PRN #1 inha 04/10/18 Unknown Rx Inhaler(NF)] Azithromycin [Zithromax Z-JD] 0 mg PO DAILY #1 tab 04/10/18 Unknown Rx Prednisone [predniSONE 10 mg 10 mg PO .TAPER #1 tab.ds.pk 04/10/18 Unknown Rx (6-Day Pack, 21 Tabs)] guaiFENesin/DEXTROMETHORPHAN 1 each PO Q8H #15 capsule 04/10/18 Unknown Rx [Robitussin Fhztr-Rgoli-Gqal Dm] oxyCODONE /ACETAMINOPHEN [Percocet 1 tab PO QHS #5 tablet 04/10/18 Unknown Rx 5/325] HYDROcodone/APAP 10-325 [[place] 1 each PO Q6HR PRN #10 tablet 05/26/18 Unknown Rx 10/325] Allergies Allergy/AdvReac Type Severity Reaction Status Date / Time Penicillins Allergy Hives Verified 05/30/17 07:35 ED Review of Systems ROS: Stated complaint: FALL Other details as noted in HPI Comment: All other systems reviewed and negative Constitutional: denies: fever, malaise Respiratory: shortness of breath (chronic due to COPD CHF). denies: cough Cardiovascular: denies: chest pain ED Past Medical Hx - Past Medical History Previous Medical History?: Yes Hx CVA: Yes Hx Heart Attack/AMI: Yes Hx Congestive Heart Failure: Yes Hx Diabetes: Yes Hx Seizures: Yes Hx Asthma: Yes Hx COPD: Yes Hx HIV: No Additional medical history: BRONCHITIS - Social History Smoking Status: Current Every Day Smoker Substance Use Type: None - Medications Home Medications: Home Medications Medication Instructions Recorded Confirmed Last Taken Type Lisinopril [Zestril TAB] 10 mg PO QDAY #30 tablet 10/16/17 04/08/18 Unknown Rx Atorvastatin Calcium [Lipitor] 10 mg PO DAILY 04/08/18 04/08/18 Unknown History Benztropine [Cogentin] 2 mg PO HS 04/08/18 04/08/18 Unknown History Fenofibrate [Lipofen] 54 mg PO QDAY 04/08/18 04/08/18 Unknown History Sertraline [Zoloft] 50 mg PO QAM 04/08/18 04/08/18 Unknown History metFORMIN [Glucophage] 500 mg PO BID 04/08/18 04/08/18 Unknown History risperiDONE [Risperdal] 2 mg PO HS 04/08/18 04/08/18 Unknown History Phenytoin Sodium Extended 300 mg PO QDAY 04/09/18 04/09/18 04/07/18 10:00 History [Dilantin] ALBUTEROL Inhaler(NF) [VENTOLIN 2 puff IH QID PRN #1 inha 04/10/18 Unknown Rx Inhaler(NF)] Azithromycin [Zithromax Z-JD] 0 mg PO DAILY #1 tab 04/10/18 Unknown Rx Prednisone [predniSONE 10 mg 10 mg PO .TAPER #1 tab.ds.pk 04/10/18 Unknown Rx (6-Day Pack, 21 Tabs)] guaiFENesin/DEXTROMETHORPHAN 1 each PO Q8H #15 capsule 04/10/18 Unknown Rx [Robitussin Nekyt-Gjrae-Drax Dm] oxyCODONE /ACETAMINOPHEN [Percocet 1 tab PO QHS #5 tablet 04/10/18 Unknown Rx 5/325] HYDROcodone/APAP 10-325 [[place] 1 each PO Q6HR PRN #10 tablet 05/26/18 Unknown Rx 10/325] ED Physical Exam - General General appearance: alert, in no apparent distress - Head Head exam: Present: atraumatic, normocephalic - Eye Eye exam: Present: normal appearance - ENT ENT exam: Present: mucous membranes moist - Neck Neck exam: Present: normal inspection, full ROM. Absent: tenderness, meningism us - Respiratory Respiratory exam: Present: normal lung sounds bilaterally. Absent: respiratory distress, wheezes, rales, rhonchi - Cardiovascular Cardiovascular Exam: Present: regular rate, normal rhythm, normal heart sounds. Absent: rubs, gallop - GI/Abdominal GI/Abdominal exam: Present: soft, normal bowel sounds. Absent: distended, tenderness, guarding, rebound - Extremities Exam Extremities exam: Present: normal inspection - Back Exam Back exam: Present: normal inspection, full ROM. Absent: tenderness, CVA tenderness (R), CVA tenderness (L), muscle spasm, paraspinal tenderness - Neurological Exam Neurological exam: Present: alert, oriented X3 - Psychiatric Psychiatric exam: Present: normal affect, normal mood - Skin Skin exam: Present: warm, dry, intact, normal color. Absent: rash ED Course Vital Signs 05/26/18 05/26/18 05/26/18 11:20 11:23 11:25 Temperature 98 F Pulse Rate 79 Respiratory 22 23 Rate Blood Pressure Blood Pressure 128/75 [Left] O2 Sat by Pulse 98 95 Oximetry 05/26/18 11:30 Temperature Pulse Rate Respiratory 34 H Rate Blood Pressure 140/115 Blood Pressure [Left] O2 Sat by Pulse 98 Oximetry ED Medical Decision Making - Radiology Data Radiology results: report reviewed Lumbar spine radiographs: No acute process fracture injury Left hip radiographs: No fracture no dislocation no acute injury CT head no acute traumatic process - Medical Decision Making Ms. Elias presents status post fall in bathtub. CT head negative for skull fracture or intracranial hemorrhage. Radiographs of the lumbar spine and left hip did not reveal any acute injury. Given Reassurance and discharged home. Prescribed 10 tablets of [place] for pain relief Critical care attestation.: If time is entered above; I have spent that time in minutes in the direct care of this critically ill patient, excluding procedure time. ED Disposition Clinical Impression: Fall, Back pain, Hip pain, Headache Disposition: TO HOME OR SELFCARE Is pt being admited?: No Does the pt Need Aspirin: No Condition: Stable Instructions: Minor Head Injury (ED), Acute Low Back Pain (ED) Prescriptions: HYDROcodone/APAP 10-325 [[place] 10/325] 1 each PO Q6HR PRN #10 tablet PRN Reason: Pain Referrals: PRIMARY CARE, [Referring] - 3-5 Days
--- NOTE | 2018-05-26 12:11 | XRay Report ---
LEFT HIP, 2 views: History: Hip pain. The bony architecture is intact without evidence of fracture or dislocation. No significant soft tissue abnormality is seen. IMPRESSION: Normal left hip.
--- NOTE | 2018-05-26 12:12 | XRay Report ---
LUMBOSACRAL SPINE, FIVE VIEWS: HISTORY: Back pain. Views of the lumbosacral spine demonstrate normal bony alignment, vertebral height and interspace distances. Oblique views show patent foramina and normal apophyseal joint alignment. Moderate facet arthropathy is noted at the lowest 3 levels. IMPRESSION: Lumbar spondylosis. No acute injury is appreciated on x-ray.
--- NOTE | 2018-05-26 13:04 | Cat Scan Report ---
FINAL REPORT EXAM: CT HEAD/BRAIN WO CON HISTORY: head trauma fall COMPARISON: None. TECHNIQUE: Multiple contiguous axial images were obtained through the head without administration of IV contrast FINDINGS: There is normal brain volume for the patient's age. There is normal sandoval-white differentiation. There is no parenchymal hemorrhage or extra-axial fluid collection. There is no mass or mass effect. There is no acute territorial infarct. The ventricles are midline and are not enlarged. The subarachnoid s paces and basilar cisterns are clear. There is no skull fracture. The paranasal sinuses and mastoid a ir cells are clear. The bilateral orbits are intact. IMPRESSION: No acute intracranial abnormality.
== END 2018-05-26 14:13 | disposition home or self-care (01) ==
LOC: ED 11:19
DX: M54.5 Low back pain (principal); R51 Headache; M25.552 Pain in left hip; R06.02 Shortness of breath; J44.9 Chronic obstructive pulmonary disease, unspecified; E11.9 Type 2 diabetes mellitus without complications; I50.9 Heart failure, unspecified; I25.2 Old myocardial infarction; F17.200 Nicotine dependence, unspecified, uncomplicated; Z88.0 Allergy status to penicillin
CPT/HCPCS: 70450; 72110; 73502; 96374; 96375; 99284; J2270; J2405

== ENCOUNTER 2018-09-09 18:09 | Emergency (ER) | payer MEDICAID ==
[2018-09-09] MEDS ORDERED: ATROVENT IH ONE (18:13)
[2018-09-09] MEDS ORDERED: PROVENTIL IH ONE (18:13)
--- NOTE | 2018-09-09 18:13 | Emergency Department Report ---
Blank Doc - Documentation Documentation: This is a 53-year-old female that presents with chest pain and SOB. Exam: wheezing diffuse This initial assessment/diagnostic orders/clinical plan/treatment(s) is/are subject to change based on patient's health status, clinical progression and re- assessment by fellow clinical providers in the ED. Further treatment and workup at subsequent clinical providers discretion. Patient/guardians urged not to elope from the ED as their condition may be serious if not clinically assessed and managed. Initial orders include: 1- Patient sent to MAIN ED for further evaluation and treatment 2- labs 3- CXR 4- EKG 5- breathing treatment
[2018-09-09 18:37] LABS: Basophils # (Auto) 0.1 K/mm3 (0.0-0.1); Basophils % (Auto) 0.9 % (0.0-1.8); Eosinophils # (Auto) 0.2 K/mm3 (0.0-0.4); Eosinophils % (Auto) 2.8 % (0.0-4.3); Hematocrit 40.2 % (30.3-42.9); Hemoglobin 13.5 gm/dl (10.1-14.3); Lymphocytes # (Auto) 2.5 K/mm3 (1.2-5.4); Mean Corpuscular HGB Conc 34 % (30-34); Mean Corpuscular Volume 90 fl (79-97); Monocytes # (Auto) 0.7 K/mm3 (0.0-0.8); Monocytes % (Auto) 9.3 % (0.0-7.3); Platelet Count 220 K/mm3 (140-440); Red Blood Count 4.48 M/mm3 (3.65-5.03); Red Cell Distribution Width 14.4 % (13.2-15.2)
[2018-09-09 18:47] LABS: INR 0.85 (0.87-1.13)
[2018-09-09 18:48] LABS: Partial Thromboplastin Time 28.1 Sec. (24.2-36.6)
[2018-09-09 18:58] LABS: BUN/Creatinine Ratio 13; Blood Urea Nitrogen 9 mg/dL (7-17); Calcium 9.1 mg/dL (8.4-10.2); Creatine Kinase MB 5.6 ng/mL (0.0-4.0); Hemolysis Index 29
--- NOTE | 2018-09-09 20:26 | Emergency Department Report ---
ED General Adult HPI - General Chief complaint: Dyspnea/Respdistress Stated complaint: SOB Time Seen by Provider: 09/09/18 18:11 Source: patient Mode of arrival: Ambulatory Limitations: No Limitations - History of Present Illness Initial comments: 53-year-old female with a history of COPD who is recently been taken off of oxygen per the patient, coronary disease, CHF, seizures presents with the complaint of shortness of breath. Patient states that she has been having worsening shortness of breath over the past month which exacerbated except today. Patient states she's had a cough productive of yellow phlegm. Patient states he has had fever. Patient states she is on steroids at current time as well. - Related Data Home Medications Medication Instructions Recorded Confirmed Last Taken Atorvastatin Calcium [Lipitor] 10 mg PO DAILY 04/08/18 04/08/18 Unknown Benztropine [Cogentin] 2 mg PO HS 04/08/18 04/08/18 Unknown Fenofibrate [Lipofen] 54 mg PO QDAY 04/08/18 04/08/18 Unknown Sertraline [Zoloft] 50 mg PO QAM 04/08/18 04/08/18 Unknown metFORMIN [Glucophage] 500 mg PO BID 04/08/18 04/08/18 Unknown risperiDONE [Risperdal] 2 mg PO HS 04/08/18 04/08/18 Unknown Phenytoin Sodium Extended 300 mg PO QDAY 04/09/18 04/09/18 04/07/18 10:00 [Dilantin] Previous Rx's Medication Instructions Recorded Last Taken Type Lisinopril [Zestril TAB] 10 mg PO QDAY #30 tablet 10/16/17 Unknown Rx ALBUTEROL Inhaler(NF) [VENTOLIN 2 puff IH QID PRN #1 inha 04/10/18 Unknown Rx Inhaler(NF)] Azithromycin [Zithromax Z-JD] 0 mg PO DAILY #1 tab 04/10/18 Unknown Rx Prednisone [predniSONE 10 mg 10 mg PO .TAPER #1 tab.ds.pk 04/10/18 Unknown Rx (6-Day Pack, 21 Tabs)] guaiFENesin/DEXTROMETHORPHAN 1 each PO Q8H #15 capsule 04/10/18 Unknown Rx [Robitussin Yxikr-Qbvuv-Thbt Dm] oxyCODONE /ACETAMINOPHEN [Percocet 1 tab PO QHS #5 tablet 04/10/18 Unknown Rx 5/325] HYDROcodone/APAP 10-325 [[place] 1 each PO Q6HR PRN #10 tablet 05/26/18 Unknown Rx 10/325] Hydrocodone/Chlorphen Polis(Nf 10 ml PO Q12H 7 Days #140 susp 09/10/18 Unknown Rx [Tussionex (Nf)] Allergies Allergy/AdvReac Type Severity Reaction Status Date / Time Penicillins Allergy Hives Verified 05/30/17 07:35 ED Review of Systems ROS: Stated complaint: SOB Other details as noted in HPI Constitutional: denies: chills, fever Eyes: denies: eye pain, eye discharge, vision change ENT: denies: ear pain, throat pain Respiratory: SOB at rest Cardiovascular: chest pain Endocrine: no symptoms reported Gastrointestinal: denies: abdominal pain, nausea, diarrhea Genitourinary: denies: urgency, dysuria, discharge Musculoskeletal: denies: back pain, joint swelling, arthralgia Skin: denies: rash, lesions Neurological: denies: headache, weakness, paresthesias Psychiatric: denies: anxiety, depression Hematological/Lymphatic: denies: easy bleeding, easy bruising ED Past Medical Hx - Past Medical History Previous Medical History?: Yes Hx CVA: Yes Hx Heart Attack/AMI: Yes Hx Congestive Heart Failure: Yes Hx Diabetes: Yes Hx Seizures: Yes Hx Asthma: Yes Hx COPD: Yes Hx HIV: No Additional medical history: BRONCHITIS - Surgical History Past Surgical History?: Yes Additional Surgical History: Hernia surgery - Social History Smoking Status: Former Smoker Substance Use Type: None - Medications Home Medications: Home Medications Medication Instructions Recorded Confirmed Last Taken Type Lisinopril [Zestril TAB] 10 mg PO QDAY #30 tablet 10/16/17 04/08/18 Unknown Rx Atorvastatin Calcium [Lipitor] 10 mg PO DAILY 04/08/18 04/08/18 Unknown History Benztropine [Cogentin] 2 mg PO HS 04/08/18 04/08/18 Unknown History Fenofibrate [Lipofen] 54 mg PO QDAY 04/08/18 04/08/18 Unknown History Sertraline [Zoloft] 50 mg PO QAM 04/08/18 04/08/18 Unknown History metFORMIN [Glucophage] 500 mg PO BID 04/08/18 04/08/18 Unknown History risperiDONE [Risperdal] 2 mg PO HS 04/08/18 04/08/18 Unknown History Phenytoin Sodium Extended 300 mg PO QDAY 04/09/18 04/09/18 04/07/18 10:00 History [Dilantin] ALBUTEROL Inhaler(NF) [VENTOLIN 2 puff IH QID PRN #1 inha 04/10/18 Unknown Rx Inhaler(NF)] Azithromycin [Zithromax Z-JD] 0 mg PO DAILY #1 tab 04/10/18 Unknown Rx Prednisone [predniSONE 10 mg 10 mg PO .TAPER #1 tab.ds.pk 04/10/18 Unknown Rx (6-Day Pack, 21 Tabs)] guaiFENesin/DEXTROMETHORPHAN 1 each PO Q8H #15 capsule 04/10/18 Unknown Rx [Robitussin Ojlpx-Tgvyn-Jfwo Dm] oxyCODONE /ACETAMINOPHEN [Percocet 1 tab PO QHS #5 tablet 04/10/18 Unknown Rx 5/325] HYDROcodone/APAP 10-325 [[place] 1 each PO Q6HR PRN #10 tablet 05/26/18 Unknown Rx 10/325] Hydrocodone/Chlorphen Polis(Nf 10 ml PO Q12H 7 Days #140 susp 09/10/18 Unknown Rx [Tussionex (Nf)] ED Physical Exam - General Limitations: No Limitations General appearance: alert, other (uncomfortable; moderate distress) - Head Head exam: Present: atraumatic, normocephalic - Eye Eye exam: Present: normal appearance - ENT ENT exam: Present: mucous membranes moist - Neck Neck exam: Present: normal inspection - Respiratory Respiratory exam: Present: respiratory distress, wheezes - Cardiovascular Cardiovascular Exam: Present: regular rate, normal rhythm. Absent: systolic murmur, diastolic murmur, rubs, gallop - GI/Abdominal GI/Abdominal exam: Present: soft, distended (mild), normal bowel sounds - Extremities Exam Extremities exam: Present: normal inspection - Back Exam Back exam: Present: normal inspection - Neurological Exam Neurological exam: Present: alert, oriented X3 - Psychiatric Psychiatric exam: Present: normal affect, normal mood - Skin Skin exam: Present: warm, dry, intact, normal color. Absent: rash ED Course Vital Signs 09/09/18 09/09/18 09/09/18 18:11 18:22 20:00 Temperature 98 F Pulse Rate 92 H Pulse Rate [ 89 Posterior Bilateral Throughout] Respiratory 24 20 Rate Respiratory 26 H Rate [Posterior Bilateral Throughout] Blood Pressure 134/81 O2 Sat by Pulse 98 93 Oximetry 09/09/18 20:10 Temperature Pulse Rate Pulse Rate [ 86 Posterior Bilateral Throughout] Respiratory Rate Respiratory 22 Rate [Posterior Bilateral Throughout] Blood Pressure O2 Sat by Pulse Oximetry ED Medical Decision Making - Lab Data Result diagrams: 09/09/18 18:18 09/09/18 18:18 - Medical Decision Making Patient has normal oxygen saturation of 95% on room air. Patient is in no acute distress. ABG on room air does not show P02<60. - Differential Diagnosis COPD exacerbatiojn; Anemia; Dehydration; Pneumonia Critical care attestation.: If time is entered above; I have spent that time in minutes in the direct care of this critically ill patient, excluding procedure time. ED Disposition Clinical Impression: COPD exacerbation Disposition: DC-01 TO HOME OR SELFCARE Is pt being admited?: No Condition: Stable Instructions: Chronic Obstructive Pulmonary Disease (ED) Prescriptions: Hydrocodone/Chlorphen Polis(Nf [Tussionex (Nf)] 10 ml PO Q12H 7 Days #140 susp Referrals: PRIMARY CARE, [Primary Care Provider] - 3-5 Days Time of Disposition: 01:04 Print Language: SALVADOREAN
[2018-09-09] MEDS ORDERED: MAGNESIUM SULFATE 2GM/50ML 2 GM/50 ML BAG IV ONE (21:11)
[2018-09-09] MEDS ORDERED: ULTRAM PO ONE (21:12)
--- NOTE | 2018-09-09 22:07 | XRay Report ---
PROCEDURE: XR CHEST 1V AP TECHNIQUE: Chest radiograph single view. HISTORY: Dyspnea COMPARISONS: None . FINDINGS: Heart: Normal. Mediastinum/Vessels: Normal. Lungs/Pleural space: Normal. Bony thorax: No acute osseous abnormality. Life support devices: None. IMPRESSION: No acute cardiopulmonary abnormality. This document is electronically signed by Srikanth Dubose MD., Sep 09 2018 10:05:53 PM ET
[2018-09-10] MEDS ORDERED: ROBITUSSIN AC PO ONE (01:06)
[2018-09-10 02:19] VITALS: BP 116/53
== END 2018-09-10 01:50 | disposition home or self-care (01) ==
LOC: ED 18:09
DX: J44.1 Chronic obstructive pulmonary disease with (acute) exacerbation (principal); I25.2 Old myocardial infarction; I50.9 Heart failure, unspecified; E11.9 Type 2 diabetes mellitus without complications; Z87.891 Personal history of nicotine dependence
CPT/HCPCS: 36415; 71045; 80048; 82550; 82553; 82803; 83880; 84484; 85025; 85610; 85730; 94644; 96365; 99284; J3475; 94640

== ENCOUNTER 2018-09-22 22:04 | Emergency (ER) | payer MEDICAID ==
[2018-09-22] MEDS ORDERED: MAGNESIUM SULFATE 2GM/50ML 2 GM/50 ML BAG IV ONE (22:57)
[2018-09-22] MEDS ORDERED: ATROVENT IH ONE (22:58)
[2018-09-22] MEDS ORDERED: PROVENTIL IH ONE (22:58)
--- NOTE | 2018-09-22 23:06 | Emergency Department Report ---
ED Shortness of Breath HPI - General Chief Complaint: Dyspnea/Respdistress Stated Complaint: TIFFANIE/ASTHMA Time Seen by Provider: 09/22/18 22:54 Source: patient, EMS Mode of arrival: Stretcher Limitations: No Limitations - History of Present Illness Initial Comments: Mrs. Elias is a pleasant 53-year-old female with history of COPD, congestive heart failure, CAD who presents with shortness of breath. She received Solumedrol and nebulizer therapy via EMS. Shortness of breath began today. She stated that her management developer took her off oxygen because "she did not need it". She has wheezing, she has productive cough with green sputum. She is followed by [facility] in [place]. Complaint: shortness of breath -: Gradual, days(s) (1) Severity: moderate Consistency: constant Improves With: bronchodilators Known History Of: COPD, congestive heart failure Associated Symptoms: cough - Related Data Home Medications Medication Instructions Recorded Confirmed Last Taken Atorvastatin Calcium [Lipitor] 10 mg PO DAILY 04/08/18 04/08/18 Unknown Benztropine [Cogentin] 2 mg PO HS 04/08/18 04/08/18 Unknown Fenofibrate [Lipofen] 54 mg PO QDAY 04/08/18 04/08/18 Unknown Sertraline [Zoloft] 50 mg PO QAM 04/08/18 04/08/18 Unknown metFORMIN [Glucophage] 500 mg PO BID 04/08/18 04/08/18 Unknown risperiDONE [Risperdal] 2 mg PO HS 04/08/18 04/08/18 Unknown Phenytoin Sodium Extended 300 mg PO QDAY 04/09/18 04/09/18 04/07/18 10:00 [Dilantin] Previous Rx's Medication Instructions Recorded Last Taken Type Lisinopril [Zestril TAB] 10 mg PO QDAY #30 tablet 10/16/17 Unknown Rx ALBUTEROL Inhaler(NF) [VENTOLIN 2 puff IH QID PRN #1 inha 04/10/18 Unknown Rx Inhaler(NF)] Azithromycin [Zithromax Z-JD] 0 mg PO DAILY #1 tab 04/10/18 Unknown Rx Prednisone [predniSONE 10 mg 10 mg PO .TAPER #1 tab.ds.pk 04/10/18 Unknown Rx (6-Day Pack, 21 Tabs)] guaiFENesin/DEXTROMETHORPHAN 1 each PO Q8H #15 capsule 04/10/18 Unknown Rx [Robitussin Vhizw-Wbosk-Nvtc Dm] oxyCODONE /ACETAMINOPHEN [Percocet 1 tab PO QHS #5 tablet 04/10/18 Unknown Rx 5/325] HYDROcodone/APAP 10-325 [[place] 1 each PO Q6HR PRN #10 tablet 05/26/18 Unknown Rx 10/325] Hydrocodone/Chlorphen Polis(Nf 10 ml PO Q12H 7 Days #140 susp 09/10/18 Unknown Rx [Tussionex (Nf)] Azithromycin [Zithromax Z-JD] 250 mg PO DAILY 4 Days #4 tablet 09/23/18 Unknown Rx Allergies Allergy/AdvReac Type Severity Reaction Status Date / Time Penicillins Allergy Hives Verified 05/30/17 07:35 ED Review of Systems ROS: Stated complaint: TIFFANIE/ASTHMA Other details as noted in HPI Comment: All other systems reviewed and negative Constitutional: denies: fever, malaise Respiratory: cough, shortness of breath, wheezing ED Past Medical Hx - Past Medical History Previous Medical History?: Yes Hx CVA: Yes Hx Heart Attack/AMI: Yes Hx Congestive Heart Failure: Yes Hx Diabetes: Yes Hx Seizures: Yes Hx Asthma: Yes Hx COPD: Yes Hx HIV: No Additional medical history: BRONCHITIS - Surgical History Past Surgical History?: Yes Additional Surgical History: Hernia surgery - Social History Smoking Status: Former Smoker Substance Use Type: None - Medications Home Medications: Home Medications Medication Instructions Recorded Confirmed Last Taken Type Lisinopril [Zestril TAB] 10 mg PO QDAY #30 tablet 10/16/17 04/08/18 Unknown Rx Atorvastatin Calcium [Lipitor] 10 mg PO DAILY 04/08/18 04/08/18 Unknown History Benztropine [Cogentin] 2 mg PO HS 04/08/18 04/08/18 Unknown History Fenofibrate [Lipofen] 54 mg PO QDAY 04/08/18 04/08/18 Unknown History Sertraline [Zoloft] 50 mg PO QAM 04/08/18 04/08/18 Unknown History metFORMIN [Glucophage] 500 mg PO BID 04/08/18 04/08/18 Unknown History risperiDONE [Risperdal] 2 mg PO HS 04/08/18 04/08/18 Unknown History Phenytoin Sodium Extended 300 mg PO QDAY 04/09/18 04/09/18 04/07/18 10:00 History [Dilantin] ALBUTEROL Inhaler(NF) [VENTOLIN 2 puff IH QID PRN #1 inha 04/10/18 Unknown Rx Inhaler(NF)] Azithromycin [Zithromax Z-JD] 0 mg PO DAILY #1 tab 04/10/18 Unknown Rx Prednisone [predniSONE 10 mg 10 mg PO .TAPER #1 tab.ds.pk 04/10/18 Unknown Rx (6-Day Pack, 21 Tabs)] guaiFENesin/DEXTROMETHORPHAN 1 each PO Q8H #15 capsule 04/10/18 Unknown Rx [Robitussin Zciyz-Denmt-Efdl Dm] oxyCODONE /ACETAMINOPHEN [Percocet 1 tab PO QHS #5 tablet 04/10/18 Unknown Rx 5/325] HYDROcodone/APAP 10-325 [[place] 1 each PO Q6HR PRN #10 tablet 05/26/18 Unknown Rx 10/325] Hydrocodone/Chlorphen Polis(Nf 10 ml PO Q12H 7 Days #140 susp 09/10/18 Unknown Rx [Tussionex (Nf)] Azithromycin [Zithromax Z-JD] 250 mg PO DAILY 4 Days #4 tablet 09/23/18 Unknown Rx ED Physical Exam - General Limitations: No Limitations General appearance: alert, in no apparent distress, other (speaking full sentences) - Head Head exam: Present: atraumatic, normocephalic - Eye Eye exam: Present: normal appearance - ENT ENT exam: Present: mucous membranes moist - Neck Neck exam: Present: normal inspection, full ROM - Respiratory Respiratory exam: Present: wheezes, decreased breath sounds, prolonged expiratory - Cardiovascular Cardiovascular Exam: Present: regular rate, normal rhythm, normal heart sounds. Absent: systolic murmur, diastolic murmur, rubs, gallop - GI/Abdominal GI/Abdominal exam: Present: soft, normal bowel sounds. Absent: distended, tenderness, guarding, rebound - Extremities Exam Extremities exam: Present: normal inspection - Back Exam Back exam: Present: normal inspection - Neurological Exam Neurological exam: Present: alert, oriented X3 - Psychiatric Psychiatric exam: Present: normal affect, normal mood - Skin Skin exam: Present: warm, dry, intact, normal color. Absent: rash ED Course Vital Signs 09/22/18 22:49 Temperature 98.2 F Pulse Rate 70 Respiratory 21 Rate Blood Pressure 140/75 O2 Sat by Pulse 99 Oximetry ED Medical Decision Making - Lab Data Result diagrams: 09/22/18 23:01 09/22/18 23:01 Laboratory Results - last 24 hr 09/22/18 09/22/18 09/22/18 23:01 23:01 23:07 WBC 7.5 RBC 4.08 Hgb 12.4 Hct 37.1 MCV 91 MCH 30 MCHC 34 RDW 14.8 Plt Count 232 Lymph % (Auto) 25.1 [place] % (Auto) 4.6 Eos % (Auto) 0.6 Baso % (Auto) 0.6 Lymph # 1.9 [place] # 0.3 Eos # 0.0 Baso # 0.0 Seg Neutrophils % 69.1 Seg Neutrophils # 5.2 Sodium 144 Potassium 3.7 Chloride 104.2 Carbon Dioxide 28 Anion Gap 16 BUN 12 Creatinine 0.7 Estimated GFR > 60 BUN/Creatinine Ratio 17 Glucose 123 H Calcium 9.7 NT-Pro-B Natriuret Pep 37.26 - Radiology Data Radiology results: report reviewed I personally reviewed the chest radiograph image and also reviewed radiology impression no acute process - Medical Decision Making Mrs. Elias presents with mild COPD exacerbation. Recent use of steroids. Prescribed azithromycin. Appears well. Dc'd home Critical care attestation.: If time is entered above; I have spent that time in minutes in the direct care of this critically ill patient, excluding procedure time. ED Disposition Clinical Impression: COPD exacerbation Disposition: DC-01 TO HOME OR SELFCARE Is pt being admited?: No Does the pt Need Aspirin: No Condition: Stable Instructions: Chronic Obstructive Pulmonary Disease (ED) Prescriptions: Azithromycin [Zithromax Z-JD] 250 mg PO DAILY 4 Days #4 tablet Referrals: PRIMARY CARE, [Primary Care Provider] - 3-5 Days
[2018-09-22 23:15] LABS: Basophils % (Auto) 0.6 % (0.0-1.8); Eosinophils % (Auto) 0.6 % (0.0-4.3); Hematocrit 37.1 % (30.3-42.9); Hemoglobin 12.4 gm/dl (10.1-14.3); Lymphocytes # (Auto) 1.9 K/mm3 (1.2-5.4); Lymphocytes % (Auto) 25.1 % (13.4-35.0); Mean Corpuscular HGB Conc 34 % (30-34); Mean Corpuscular Volume 91 fl (79-97); Monocytes # (Auto) 0.3 K/mm3 (0.0-0.8); Monocytes % (Auto) 4.6 % (0.0-7.3); Platelet Count 232 K/mm3 (140-440); Red Blood Count 4.08 M/mm3 (3.65-5.03); Red Cell Distribution Width 14.8 % (13.2-15.2)
[2018-09-22 23:46] LABS: BUN/Creatinine Ratio 17; Blood Urea Nitrogen 12 mg/dL (7-17); Calcium 9.7 mg/dL (8.4-10.2); Hemolysis Index 11
--- NOTE | 2018-09-23 00:07 | XRay Report ---
PROCEDURE: XR CHEST 1V AP TECHNIQUE: Chest radiograph single view. HISTORY: Dyspnea COMPARISONS: September 09, 2018 . FINDINGS: Heart: Normal. Mediastinum/Vessels: Normal. Lungs/Pleural space: Normal. Bony thorax: No acute osseous abnormality. Life support devices: None. IMPRESSION: No acute cardiopulmonary abnormality. This document is electronically signed by Srikanth Dubose MD., Sep 23 2018 12:05:27 AM ET
[2018-09-23] MEDS ORDERED: ZITHROMAX PO ONE (00:53)
[2018-09-23 01:38] VITALS: BP 128/67
== END 2018-09-23 02:30 | disposition home or self-care (01) ==
LOC: ED 22:04
DX: J44.1 Chronic obstructive pulmonary disease with (acute) exacerbation (principal); I50.9 Heart failure, unspecified; E11.9 Type 2 diabetes mellitus without complications; Z87.891 Personal history of nicotine dependence; Z88.0 Allergy status to penicillin
CPT/HCPCS: 36415; 71045; 80048; 83880; 85025; 94640; 96365; 99285; J3475

== ENCOUNTER 2018-10-29 11:18 | Emergency (ER) | payer MEDICAID ==
--- NOTE | 2018-10-29 11:37 | Event Note ---
ED Screening Note ED Screening Note: co b back pain no trauma peña w urination also co high blood sugar other complaint cough pmh htn g. stones DM obese chrones disease chf sz no cig/etoh/drugs rx lisinopril metformin insulin dilantin phenobarb lasix This initial assessment/diagnostic orders/clinical plan/treatment(s) is/are subject to change based on patients health status, clinical progression and re- assessment by fellow clinical providers in the ED. Further treatment and workup at subsequent clinical providers discretion. Patient/guardian urged not to elope from the ED as their condition may be serious if not clinically assessed and managed. Initial orders include: blood glucose urine labs xray chest
[2018-10-29 11:39] VITALS: BP 139/80
[2018-10-29] MEDS ORDERED: TORADOL IM ONE (12:14)
--- NOTE | 2018-10-29 12:15 | XRay Report ---
CHEST 1 VIEW 11:58 AM INDICATION / CLINICAL INFORMATION: Cough and history of CHF. COMPARISON: None currently available. FINDINGS: SUPPORT DEVICES: None. HEART / MEDIASTINUM: The heart size and pulmonary vasculature are normal. LUNGS / PLEURA: No significant pulmonary or pleural abnormality. No pneumothorax. ADDITIONAL FINDINGS: There are moderate degenerative changes involving both shoulders, right greater than left. IMPRESSION: No acute findings. No evidence of congestive heart failure. Signer Name: Shaggy Morillo MD Signed: 10/29/2018 12:10 PM Workstation Name: [id number]
[2018-10-29 13:22] LABS: Bilirubin,Urine NEG (Negative); Blood,Urine NEG (Negative); Color,Urine Yellow (Yellow); Mucus,Urine 2+ /HPF; Protein,Urine <15 mg/dL mg/dL (Negative); Urobilinogen,Urine < 2.0 mg/dL (<2.0)
--- NOTE | 2018-10-29 13:33 | Emergency Department Report ---
ED Back Pain/Injury HPI - General Chief Complaint: Back Pain/Injury Stated Complaint: BACK PAIN/COUGH Time Seen by Provider: 10/29/18 11:34 Source: patient Limitations: No Limitations - History of Present Illness Initial Comments: Patient is a 53-year-old Portuguese female who is presenting with back pain. Patient states pain is worse since yesterday. She does have a history of back arthritis and occasionally uses a cane. Patient states she has problems when she straightens up. She says she could hardly get out of bed last night. Patient states pains usually are worse in the mornings better throughout the day. Patient is 7 out of 10 in severity. Patient denies any urinary symptoms at this time. Patient does have a slight cough and has a history of COPD. - Related Data Home Medications Medication Instructions Recorded Confirmed Last Taken Atorvastatin Calcium [Lipitor] 10 mg PO DAILY 04/08/18 04/08/18 Unknown Benztropine [Cogentin] 2 mg PO HS 04/08/18 04/08/18 Unknown Fenofibrate [Lipofen] 54 mg PO QDAY 04/08/18 04/08/18 Unknown Sertraline [Zoloft] 50 mg PO QAM 04/08/18 04/08/18 Unknown metFORMIN [Glucophage] 500 mg PO BID 04/08/18 04/08/18 Unknown risperiDONE [Risperdal] 2 mg PO HS 04/08/18 04/08/18 Unknown Phenytoin Sodium Extended 300 mg PO QDAY 04/09/18 04/09/18 04/07/18 10:00 [Dilantin] Previous Rx's Medication Instructions Recorded Last Taken Type Lisinopril [Zestril TAB] 10 mg PO QDAY #30 tablet 10/16/17 Unknown Rx ALBUTEROL Inhaler(NF) [VENTOLIN 2 puff IH QID PRN #1 inha 04/10/18 Unknown Rx Inhaler(NF)] Azithromycin [Zithromax Z-JD] 0 mg PO DAILY #1 tab 04/10/18 Unknown Rx Prednisone [predniSONE 10 mg 10 mg PO .TAPER #1 tab.ds.pk 04/10/18 Unknown Rx (6-Day Pack, 21 Tabs)] guaiFENesin/DEXTROMETHORPHAN 1 each PO Q8H #15 capsule 04/10/18 Unknown Rx [Robitussin Snwgf-Ghwaq-Wqfr Dm] oxyCODONE /ACETAMINOPHEN [Percocet 1 tab PO QHS #5 tablet 04/10/18 Unknown Rx 5/325] HYDROcodone/APAP 10-325 [[place] 1 each PO Q6HR PRN #10 tablet 05/26/18 Unknown Rx 10/325] Hydrocodone/Chlorphen Polis(Nf 10 ml PO Q12H 7 Days #140 susp 09/10/18 Unknown Rx [Tussionex (Nf)] Azithromycin [Zithromax Z-JD] 250 mg PO DAILY 4 Days #4 tablet 09/23/18 Unknown Rx Benzonatate [Tessalon Perles] 100 mg PO Q8HR 5 Days #15 capsule 09/23/18 Unknown Rx Benzonatate [Tessalon Perles] 100 mg PO Q8HR #10 capsule 10/29/18 Unknown Rx HYDROcodone/APAP 5-325 [[place] 1 each PO Q6HR PRN #14 tablet 10/29/18 Unknown Rx 5/325] Ibuprofen [Motrin 800 MG tab] 800 mg PO Q8HR PRN #10 tablet 10/29/18 Unknown Rx methOCARBAMOL [Robaxin TAB] 500 mg PO Q6H PRN #14 tablet 10/29/18 Unknown Rx Allergies Allergy/AdvReac Type Severity Reaction Status Date / Time Penicillins Allergy Hives Verified 10/29/18 11:19 ED Review of Systems ROS: Stated complaint: BACK PAIN/COUGH Other details as noted in HPI Comment: All other systems reviewed and negative ED Past Medical Hx - Past Medical History BRONCHITIS ED Back Pain Physical Exam - Exam General: Vital signs noted. No distress. Alert and acting appropriately. Patient alert and oriented 3. Lungs are clear to auscultation. Abdomen is soft and nontender. Back/Abdomen: Yes Perilumbar Tenderness, No Abdominal Tenderness, No Perithoraci c Tenderness, No Sacroiliac Tenderness, No Flank Tenderness, No Straight Leg Raise Pain Neuro: Yes Normal Sensation, Yes Normal DTR's, Yes Normal Gait, No Motor Weakness ED Course Vital Signs 10/29/18 11:33 Temperature 98 F Pulse Rate 75 Respiratory 16 Rate Blood Pressure 139/80 [Left] O2 Sat by Pulse 95 Oximetry ED Medical Decision Making - Lab Data Lab Results 10/29/18 10/29/18 Range/Units 11:44 12:47 POC Glucose 92 (70-105) Urine Color Yellow (Yellow) Urine Turbidity Slightly-cloudy (Clear) Urine pH 5.0 (5.0-7.0) Ur Specific [place] 1.011 (1.003-1.030) Urine Protein <15 mg/dl (Negative) mg/dL Urine Glucose (UA) Neg (Negative) mg/dL Urine Ketones Neg (Negative) mg/dL Urine Blood Neg (Negative) Urine Nitrite Neg (Negative) Urine Bilirubin Neg (Negative) Urine Urobilinogen < 2.0 (<2.0) mg/dL Ur Leukocyte Esterase Neg (Negative) Urine WBC (Auto) 2.0 (0.0-6.0) /HPF Urine RBC (Auto) 3.0 (0.0-6.0) /HPF U Epithel Cells (Auto) 4.0 (0-13.0) /HPF Urine Mucus 2+ /HPF - Radiology Data CXR WNL - Medical Decision Making Patient given meds for symptomatic relief. Patient will be discharged home with follow-up with orthopedics regarding her back pain. Critical care attestation.: If time is entered above; I have spent that time in minutes in the direct care of this critically ill patient, excluding procedure time. ED Disposition Clinical Impression: Lumbar degenerative disc disease, Lumbar strain, Upper respiratory disease Disposition: - TO HOME OR SELFCARE Is pt being admited?: No Does the pt Need Aspirin: No Condition: Stable Instructions: Acute Low Back Pain (ED) Referrals: [facility] MD IBAN [Primary Care Provider] - 3-5 Days ALESHA LAWRENCE MD [Staff Physician] - 3-5 Days Time of Disposition: 13:30
== END 2018-10-29 13:51 | disposition home or self-care (01) ==
LOC: ED 11:18
DX: S39.012A Strain of muscle, fascia and tendon of lower back, initial encounter (principal); J06.9 Acute upper respiratory infection, unspecified; M51.36 Other intervertebral disc degeneration, lumbar region; Z88.0 Allergy status to penicillin; Z79.899 Other long term (current) drug therapy; X58.XXXA Exposure to other specified factors, initial encounter; Y93.89 Activity, other specified; Y92.89 Other specified places as the place of occurrence of the external cause; Y99.0 Civilian activity done for income or pay
CPT/HCPCS: 71046; 81001; 82962; 96372; 99284; J1885

== ENCOUNTER 2019-05-29 12:03 | Observation (INO) | payer MEDICAID ==
--- NOTE | 2019-05-29 14:00 | XRay Report ---
Chest single view INDICATION: Dyspnea IMPRESSION: Streaky perihilar opacities present throughout both lungs which could be secondary to bro nchial wall thickening/reactive airways disease. No discrete pneumonia is identified. Low lung volume s. Signer Name: Tam Mills MD Signed: 05/29/2019 1:56 PM Workstation Name: [id number]
[2019-05-29] MEDS ORDERED: ACETAMINOPHEN 325 MG TAB PO ONE (14:12)
[2019-05-29] MEDS ORDERED: NITROGLYCERIN 2% OINT 1 GM TP ONE (14:12)
--- NOTE | 2019-05-29 14:17 | Emergency Department Report ---
ED Chest Pain HPI - General Chief Complaint: Dyspnea/Respdistress Stated Complaint: SOB Time Seen by Provider: 05/29/19 13:56 Source: family, EMS Mode of arrival: Ambulatory Limitations: No Limitations - History of Present Illness Initial Comments: Patient is a 54-year-old female with a past medical history of congestive heart failure COPD/asthma, diabetes, current acute coronary syndrome MIs in the past who presented with chest pain shortness of breath. The patient states she was at a bus stop waiting for the bus to take her back to her custodial and she began having some chest pressure which she states is 8 out of 10 in severity associated with shortness of breath. Patient states it was a heavy sensation in the mid chest. She also felt some fluttering as well. Little nauseous symptoms were appreciated but no vomiting. The patient states occasionally she does have GERD-like symptoms after eating but she had not eaten this morning and states the pain was not in the epigastrium where her GERD pain normally is. Patient states there is some sharp pains radiating into the left shoulder as well. - Related Data Home Medications Medication Instructions Recorded Confirmed Last Taken Atorvastatin Calcium [Lipitor] 10 mg PO DAILY 04/08/18 04/08/18 Unknown Benztropine [Cogentin] 2 mg PO HS 04/08/18 04/08/18 Unknown Fenofibrate [Lipofen] 54 mg PO QDAY 04/08/18 04/08/18 Unknown Sertraline [Zoloft] 50 mg PO QAM 04/08/18 04/08/18 Unknown metFORMIN [Glucophage] 500 mg PO BID 04/08/18 04/08/18 Unknown risperiDONE [RisperDAL] 2 mg PO HS 04/08/18 04/08/18 Unknown Phenytoin Sodium Extended 300 mg PO QDAY 04/09/18 04/09/18 04/07/18 10:00 [Dilantin] Previous Rx's Medication Instructions Recorded Last Taken Type lisinopriL [Zestril TAB] 10 mg PO QDAY #30 tablet 10/16/17 Unknown Rx ALBUTEROL Inhaler(NF) [VENTOLIN 2 puff IH QID PRN #1 inha 04/10/18 Unknown Rx Inhaler(NF)] Azithromycin [Zithromax Z-JD] 0 mg PO DAILY #1 tab 04/10/18 Unknown Rx Prednisone [predniSONE 10 mg 10 mg PO .TAPER #1 tab.ds.pk 04/10/18 Unknown Rx (6-Day Pack, 21 Tabs)] guaiFENesin/DEXTROMETHORPHAN 1 each PO Q8H #15 capsule 04/10/18 Unknown Rx [Robitussin Reabq-Jakjj-Lidd Dm] oxyCODONE /ACETAMINOPHEN [Percocet 1 tab PO QHS #5 tablet 04/10/18 Unknown Rx 5/325] HYDROcodone/APAP 10-325 [Bentley 1 each PO Q6HR PRN #10 tablet 05/26/18 Unknown Rx 10/325] Hydrocodone/Chlorphen Polis(Nf 10 ml PO Q12H 7 Days #140 susp 09/10/18 Unknown Rx [Tussionex (Nf)] Azithromycin [Zithromax Z-JD] 250 mg PO DAILY 4 Days #4 tablet 09/23/18 Unknown Rx Benzonatate [Tessalon Perles] 100 mg PO Q8HR 5 Days #15 capsule 09/23/18 Unknown Rx Benzonatate [Tessalon Perles] 100 mg PO Q8HR #10 capsule 10/29/18 Unknown Rx HYDROcodone/APAP 5-325 [Bentley 1 each PO Q6HR PRN #14 tablet 10/29/18 Unknown Rx 5/325] Ibuprofen [Motrin 800 MG tab] 800 mg PO Q8HR PRN #10 tablet 10/29/18 Unknown Rx methOCARBAMOL [Robaxin TAB] 500 mg PO Q6H PRN #14 tablet 10/29/18 Unknown Rx Allergies Allergy/AdvReac Type Severity Reaction Status Date / Time Penicillins Allergy Hives Verified 10/29/18 11:19 Heart Score - HEART Score History: Moderately suspicious EKG: Normal Age: 45-65 Risk factors: > 3 risk factors or hx of atherosclerotic disease Troponin: < normal limit HEART Score: 4 ED Review of Systems ROS: Stated complaint: SOB Other details as noted in HPI Comment: All other systems reviewed and negative ED Past Medical Hx - Past Medical History Previous Medical History?: Yes Hx CVA: Yes Hx Heart Attack/AMI: Yes Hx Congestive Heart Failure: Yes Hx Diabetes: Yes Hx Seizures: Yes Hx Asthma: Yes Hx COPD: Yes Hx HIV: No Additional medical history: BRONCHITIS - Surgical History Past Surgical History?: Yes Additional Surgical History: Hernia surgery - Social History Smoking Status: Current Every Day Smoker - Medications Home Medications: Home Medications Medication Instructions Recorded Confirmed Last Taken Type lisinopriL [Zestril TAB] 10 mg PO QDAY #30 tablet 10/16/17 04/08/18 Unknown Rx Atorvastatin Calcium [Lipitor] 10 mg PO DAILY 04/08/18 04/08/18 Unknown History Benztropine [Cogentin] 2 mg PO HS 04/08/18 04/08/18 Unknown History Fenofibrate [Lipofen] 54 mg PO QDAY 04/08/18 04/08/18 Unknown History Sertraline [Zoloft] 50 mg PO QAM 04/08/18 04/08/18 Unknown History metFORMIN [Glucophage] 500 mg PO BID 04/08/18 04/08/18 Unknown History risperiDONE [RisperDAL] 2 mg PO HS 04/08/18 04/08/18 Unknown History Phenytoin Sodium Extended 300 mg PO QDAY 04/09/18 04/09/18 04/07/18 10:00 History [Dilantin] ALBUTEROL Inhaler(NF) [VENTOLIN 2 puff IH QID PRN #1 inha 04/10/18 Unknown Rx Inhaler(NF)] Azithromycin [Zithromax Z-JD] 0 mg PO DAILY #1 tab 04/10/18 Unknown Rx Prednisone [predniSONE 10 mg 10 mg PO .TAPER #1 tab.ds.pk 04/10/18 Unknown Rx (6-Day Pack, 21 Tabs)] guaiFENesin/DEXTROMETHORPHAN 1 each PO Q8H #15 capsule 04/10/18 Unknown Rx [Robitussin Udutl-Yifeh-Jeub Dm] oxyCODONE /ACETAMINOPHEN [Percocet 1 tab PO QHS #5 tablet 04/10/18 Unknown Rx 5/325] HYDROcodone/APAP 10-325 [Bentley 1 each PO Q6HR PRN #10 tablet 05/26/18 Unknown Rx 10/325] Hydrocodone/Chlorphen Polis(Nf 10 ml PO Q12H 7 Days #140 susp 09/10/18 Unknown Rx [Tussionex (Nf)] Azithromycin [Zithromax Z-JD] 250 mg PO DAILY 4 Days #4 tablet 09/23/18 Unknown Rx Benzonatate [Tessalon Perles] 100 mg PO Q8HR 5 Days #15 capsule 09/23/18 Unknown Rx Benzonatate [Tessalon Perles] 100 mg PO Q8HR #10 capsule 10/29/18 Unknown Rx HYDROcodone/APAP 5-325 [Bentley 1 each PO Q6HR PRN #14 tablet 10/29/18 Unknown Rx 5/325] Ibuprofen [Motrin 800 MG tab] 800 mg PO Q8HR PRN #10 tablet 10/29/18 Unknown Rx methOCARBAMOL [Robaxin TAB] 500 mg PO Q6H PRN #14 tablet 10/29/18 Unknown Rx ED Physical Exam - General Limitations: No Limitations General appearance: alert, in no apparent distress - Head Head exam: Present: atraumatic, normocephalic - Eye Eye exam: Present: normal appearance, PERRL, EOMI - ENT ENT exam: Present: mucous membranes moist - Neck Neck exam: Present: normal inspection - Respiratory Respiratory exam: Present: normal lung sounds bilaterally. Absent: respiratory distress, wheezes, rales - Cardiovascular Cardiovascular Exam: Present: regular rate, normal rhythm, normal heart sounds. Absent: systolic murmur, diastolic murmur, rubs, gallop - GI/Abdominal GI/Abdominal exam: Present: soft, normal bowel sounds. Absent: distended, tenderness, guarding, rebound - Extremities Exam Extremities exam: Present: normal inspection - Back Exam Back exam: Present: normal inspection - Neurological Exam Neurological exam: Present: alert, oriented X3 - Psychiatric Psychiatric exam: Present: normal affect, normal mood - Skin Skin exam: Present: warm, dry, intact, normal color. Absent: rash ED Course Vital Signs 05/29/19 05/29/19 05/29/19 12:50 13:00 13:21 Temperature 98.0 F Pulse Rate 86 95 H Respiratory 20 22 Rate Blood Pressure 98/60 O2 Sat by Pulse 95 95 Oximetry DIMITRIS score - Dimitris Score Age > 65: (0) No Aspirin use within the Past 7 Days: (1) Yes 3 or more CAD Risk Factors: (1) Yes 2 or more Angina events in past 24 hrs: (1) Yes Known CAD with more than 50% Stenosis: (0) No Elevated Cardiac Markers: (0) No ST Deviation Greater than 0.5mm: (0) No DIMITRIS Score: 3 ED Medical Decision Making - Lab Data Result diagrams: 05/29/19 13:49 Lab Results 05/29/19 05/29/19 Range/Units 13:49 13:49 PT 12.0 L (12.2-14.9) Sec. INR 0.88 (0.87-1.13) Sodium 139 (137-145) mmol/L Potassium 4.3 (3.6-5.0) mmol/L Chloride 99.3 (98-107) mmol/L Carbon Dioxide 24 (22-30) mmol/L Anion Gap 20 mmol/L BUN 12 (7-17) mg/dL Creatinine 0.7 (0.7-1.2) mg/dL Estimated GFR > 60 ml/min BUN/Creatinine Ratio 17 % Glucose 102 H (65-100) mg/dL Calcium 9.7 (8.4-10.2) mg/dL Total Creatine Kinase 142 H (30-135) units/L CK-MB (CK-2) 3.1 (0.0-4.0) ng/mL CK-MB (CK-2) Rel Index 2.1 (0-4) Troponin T < 0.010 (0.00-0.029) ng/mL NT-Pro-B Natriuret Pep 43.61 (0-900) pg/mL - EKG Data -: EKG Interpreted by Ar EKG shows normal: sinus rhythm, axis, intervals, QRS complexes, ST-T waves Rate: normal - EKG Data Interpretation: normal EKG - Radiology Data Referring Physician: MALLORIE MYLES Patient Name: OSMANY POLANCO Date of : 1965 Sex: Female Report Date: 2019-05-29 Report Status: Finalized Findings [facility] [address] [place] [address] XRay Report Signed Patient: OSMANY POLANCO MR#: [id number] [birth year] : 1965 Acct:[id number] Age/Sex: 54 / F ADM Date: 05/29/19 Loc: ED Attending Dr: Ordering Physician: MALLORIE MYLES MD Date of Service: 05/29/19 Procedure(s): XR chest 1V ap Accession Number(s): [id number] cc: MALLORIE MYLES MD Fluoro Time In Minutes: Chest single view INDICATION: Dyspnea IMPRESSION: Streaky perihilar opacities present throughout both lungs which could be secondary to bronchial wall thickening/reactive airways disease. No discrete pneumonia is identified. Low lung volumes. Signer Name: Tam Mills MD Signed: 05/29/2019 1:56 PM Workstation Name: [id number] Transcribed By: CINTHIA Dictated By: Tam Mills MD Electronically Authenticated By: Tam Mills MD Signed Date/Time: 05/29/19 3415 - Medical Decision Making Patient is a 54-year-old [place] female was presented with chest discomfort shortness of breath. Patient has a normal first cardiac enzyme. Patient to be admitted for I FOR further cardiac risk stratification. Patient is pain his decreased from 8-3 out of 10 in severity. Critical care attestation.: If time is entered above; I have spent that time in minutes in the direct care of this critically ill patient, excluding procedure time. ED Disposition Clinical Impression: Acute chest pain Disposition: DC-09 OP ADMIT IP TO THIS HOSP Is pt being admited?: Yes Does the pt Need Aspirin: Yes Condition: Stable Instructions: Chest Pain (ED) Time of Disposition: 15:56
[2019-05-29 14:46] LABS: INR 0.88 (0.87-1.13)
[2019-05-29 14:56] LABS: Creatine Kinase MB 3.1 ng/mL (0.0-4.0)
[2019-05-29 14:59] LABS: BUN/Creatinine Ratio 17; Blood Urea Nitrogen 12 mg/dL (7-17); Calcium 9.7 mg/dL (8.4-10.2); Hemolysis Index 12
[2019-05-29 16:42] LABS: Hematocrit 39.9 % (30.3-42.9); Hemoglobin 13.5 gm/dl (10.1-14.3); Mean Corpuscular HGB Conc 34 % (30-34); Mean Corpuscular Volume 91 fl (79-97); Platelet Count 184 K/mm3 (140-440); Red Cell Distribution Width 14.1 % (13.2-15.2)
--- NOTE | 2019-05-29 16:50 | History and Physical Report ---
History of Present Illness Date of examination: 05/29/19 Date of admission: 05/29/19 15:57 Chief complaint: Chest pain Medications and Allergies Allergies Allergy/AdvReac Type Severity Reaction Status Date / Time Penicillins Allergy Hives Verified 10/29/18 11:19 Home Medications Medication Instructions Recorded Confirmed Last Taken Type ALBUTEROL NEB's [Proventil 0.083% 2.5 mg IH TID PRN 05/29/19 05/29/19 05/28/19 History NEBS] Metoprolol [Lopressor] 25 mg PO 05/29/19 05/29/19 05/28/19 History Phenytoin [Dilantin] 300 mg PO QHS 05/29/19 05/29/19 05/28/19 History lisinopriL [Zestril] 20 mg PO QDAY 05/29/19 05/29/19 05/28/19 History metFORMIN [Glucophage] mg PO BID 05/29/19 05/28/19 History Active Meds: Active Medications Aspirin (Aspirin) 325 mg PO QDAY SIM Exam - Physical Exam Narrative exam: GEN: Not in acute distress, lying in bed, morbidly obese HEENT: Normocephalic, atraumatic, Neck: supple, No JVD Lungs: clear heart;S1 and S2 reg, no murmurs Abd: soft, non tender, non distended, normal bowel sounds Ext: No edema, no clubbing, no cyanosis Neuro: AAO X 3, no focal neurological signs - Constitutional Vitals: Temp Pulse Resp BP Pulse Ox 98.0 F 83 19 118/71 93 05/29/19 13:21 05/29/19 16:01 05/29/19 16:01 05/29/19 16:01 05/29/19 16:01 Results - Labs CBC & Chem 7: 05/29/19 15:18 05/29/19 13:49 Labs: Abnormal lab results 05/29/19 05/29/19 Range/Units 13:49 13:49 PT 12.0 L (12.2-14.9) Sec. Glucose 102 H (65-100) mg/dL Total Creatine Kinase 142 H (30-135) units/L Assessment and Plan Chest pain Aspirin Obs Troponin q 6h x 2 Diabetes HTN CHF COPD Homeless
[2019-05-29] MEDS ORDERED: ACETAMINOPHEN 325 MG TAB PO PRN (17:15)
[2019-05-29] MEDS ORDERED: DEXTROSE 50% IN WATER (25GM) 50 ML SYRINGE IV PRN (17:15)
[2019-05-29] MEDS ORDERED: ONDANSETRON 4 MG/2 ML INJ IV PRN (17:15)
[2019-05-29] MEDS ORDERED: MORPHINE 2 MG/1 ML INJ IV PRN (17:15)
[2019-05-29 18:59] LABS: Total Cells Counted 100
[2019-05-29 19:00] LABS: Anisocytosis 1+; Stomatocytes Rare
[2019-05-29] MEDS ORDERED: LISINOPRIL 20 MG TAB PO SCH (19:00)
[2019-05-29 19:01] LABS: Platelet Estimate Consistent w Auto
[2019-05-29] MEDS ORDERED: INSULIN LISPRO 100 UNIT/ML SUB-Q SCH (22:00)
[2019-05-29] MEDS ORDERED: PHENYTOIN 100 MG CAPSULE.ER PO SCH (22:00)
[2019-05-29] MEDS: ASPIRIN 325 MG TAB PO SCH (22:42)
[2019-05-29] MEDS: metFORMIN 500 MG TAB PO SCH (22:42)
[2019-05-29] MEDS: METOPROLOL TARTRATE 25 MG TAB PO SCH (22:43)
[2019-05-30] MEDS: INSULIN LISPRO 100 UNIT/ML SUB-Q SCH ×2 (08:37→13:02)
--- NOTE | 2019-05-30 09:07 | Discharge Summary ---
Providers - Providers Date of Admission: 05/29/19 15:57 Date of discharge: 05/30/19 Attending physician: KANWAL KEMP Primary care physician: TRANSIT MANAGER Hospitalization Condition: Fair Disposition: DC-01 TO HOME OR SELFCARE Exam - Constitutional Vitals: Temp Pulse Resp BP Pulse Ox 98.4 F 73 20 136/87 95 05/30/19 04:43 05/30/19 04:45 05/30/19 04:43 05/30/19 04:43 05/30/19 04:43 Plan Activity: advance as tolerated Diet: low fat, low cholesterol, low salt Plan of Treatment: 1.Follow up with PCP in 1 week.
[2019-05-30] MEDS ORDERED: FAMOTIDINE 20 MG TAB PO SCH (10:00)
[2019-05-30 10:21] VITALS: BP 126/67
[2019-05-30] MEDS ORDERED: traMADol 50 MG TAB PO PRN (11:43)
[2019-05-30] MEDS ORDERED: methylPREDNISolone Sod Succinate 125 MG/2 ML INJ IV SCH (11:47)
[2019-05-30] MEDS: ASPIRIN 325 MG TAB PO SCH (13:00)
[2019-05-30] MEDS: metFORMIN 500 MG TAB PO SCH (13:01)
[2019-05-30] MEDS: METOPROLOL TARTRATE 25 MG TAB PO SCH (13:02)
== END 2019-05-30 14:11 | disposition home or self-care (01) ==
LOC: ED 12:03 → 4A 15:57
PROVIDERS: ADMIT Internal Medicine; ATTEND Internal Medicine
DX: R07.89 Other chest pain (principal); I11.0 Hypertensive heart disease with heart failure; I50.9 Heart failure, unspecified; J44.9 Chronic obstructive pulmonary disease, unspecified; E11.9 Type 2 diabetes mellitus without complications; R56.9 Unspecified convulsions; J45.909 Unspecified asthma, uncomplicated; F17.200 Nicotine dependence, unspecified, uncomplicated; Z79.82 Long term (current) use of aspirin; Z79.84 Long term (current) use of oral hypoglycemic drugs; Z98.890 Other specified postprocedural states
CPT/HCPCS: 36415; 71045; 80048; 82550; 82553; 82962; 83880; 84484; 85007; 85025; 85610; 93005; 93010; 96374; 99284; G0378; J2930

== ENCOUNTER 2022-01-14 14:17 | Emergency (ER) | payer MEDICAID ==
[2022-01-14 14:38] VITALS: BP 143/81
== END 2022-01-15 12:41 | disposition left against medical advice (07) ==
LOC: ED 14:17
DX: R06.02 Shortness of breath (principal); Z53.21 Procedure and treatment not carried out due to patient leaving prior to being seen by health care provider